=== PATIENT | female | born 1960 | race Caucasian/White ===

== ENCOUNTER 2023-01-20 19:02 | Inpatient (IN) | payer SELFPAY ==
[2023-01-20] VITALS (10 sets, daily range): BP systolic 114–150; BP diastolic 77–93; PULSE 71–97; RESP 16–20; TEMP 36.7; O2SAT 97–100; BMI 20.4
--- NOTE | 2023-01-20 19:32 | CRLHL7_ITS ---
For Patients: As a result of the Cures Act, medical imaging exams and procedure reports are released immediately into your electronic medical record. You may view this report before your referring provider. If you have questions, please contact your health care provider. HISTORY: Constipation. TECHNIQUE: Flat and upright abdominal radiographs. COMPARISON: No prior. FINDINGS: No free intraperitoneal air. No bowel obstruction. Patient does not appear excessively constipated. Pelvic calcifications likely represent phleboliths. There are degenerative changes of the spine. IMPRESSION: 1. No obstruction or free air. 2. Patient does not appear constipated. Dictated by Duane Benavides MD @ 01/20/2023 8:10:37 PM Dictated by: Duane Benavides MD @ 01/20/2023 20:10:41 (Electronically Signed)
--- NOTE | 2023-01-20 19:40 | ED.GENADULT ---
HPI - General Adult General Chief complaint: Constipation <Chaya Colon MD - Last Filed: 01/20/23 21:26> Stated complaint: No stool passed in a few days, coming out the top <Chaya Colon MD - Last Filed: 01/20/23 21:26> Time Seen by Provider: 01/20/23 19:24 <Chaya Colon MD - Last Filed: 01/20/23 21:26> Source: patient <Chaya Colon MD - Last Filed: 01/20/23 21:26> Mode of arrival: ambulatory <Chaya Colon MD - Last Filed: 01/20/23 21:26> Limitations: no limitations <Chaya Colon MD - Last Filed: 01/20/23 21:26> History of Present Illness HPI narrative: 62-year-old female coming in today concerned about constipation. Patient really can not tell me how long she has not had a bowel movement for. She states that yesterday and today she became very concerned about feeling ?full? and so she began the process of giving herself recurrent emesis throughout the day. She can not tell me what she has been using as enemas but she tells me that they are ?natural and herbal remedies?. She has not tried any [id number] medications such as stool softeners or bulking agents. She states that her abdomen feels uncomfortable and that anytime she eats anything in the last 24 hour she vomits it right back up again. She states that when she does her at home enemas she is able to get some stool out but it is not an amount that she feels is adequate. She denies any fevers or chills. No recent traveling. No trouble with urination. No changes in her appetite. She does state that she has been feeling lightheaded for the last 2 days. She thought today she might even pass out for a moment but did not. She feels unsteady on her feet. She states that generally she is very strong, does yoga regularly and has not been doing any of her exercises in the last month she has been so focused on getting her things packed up. Patient tells me that she has been working very hard over the last 2 months trying to get her belongings packed so that she can moved and this causes her ?rectum to become very tight?. <Chaya Colon MD - Last Filed: 01/20/23 21:26> Related Data Home medications: Home Medications Medication Instructions Recorded Confirmed No Known Home Medications 01/20/23 01/20/23 <Chaya Colon MD - Last Filed: 01/20/23 21:26> Allergies/adverse reactions: Allergies Allergy/AdvReac Type Severity Reaction Status Date / Time No Known Drug Allergies Allergy Verified 01/20/23 19:17 <Chaya Colon MD - Last Filed: 01/20/23 21:26> Review of Systems Status of ROS: Reports: 10 or more systems reviewed and unremarkable except as noted in History and below <Cahya Colon MD - Last Filed: 01/20/23 21:26> [facility] Social History: Social History Smoking Status: Never smoker Do you use any of these nicotine containing products: None How often do you have a drink containing alcohol: never How often do you have six or more drinks on one occasion: Never AUDIT-C Alcohol total score: 0 Non-prescribed substance use: denies use service: No <Chaya Colon MD - Last Filed: 01/20/23 21:26> Exam Narrative: Exam Narrative: Well-nourished well-developed patient in no acute distress. Alert and oriented. Answers questions appropriately. Mood and affect are appropriate. Patient often times evades answering questions. HEENT: Normocephalic atraumatic. Pupils are equally round reactive to light. Extraocular muscles are intact. Conjunctivae are moist without any icterus noted. Moist mucous membranes. Posterior pharynx is normal. Neck is soft without any lymphadenopathy or thyromegaly. No masses are appreciated. Cardiovascular: Heart is regular rate and rhythm S1 and S2 are present without any murmurs. Lungs: Clear to auscultation bilaterally no wheezes rhonchi or rales are appreciated. Patient takes deep breaths without any discomfort. Abdomen: Soft and nontender nondistended with hypoactive bowel sounds. No guarding or rebound. No masses or organomegaly appreciated. Extremities: Bilateral lower extremities are without edema. Normal DP and PT pulses. Skin: Well perfused without any obvious rashes. Rectal: Rectum appears irritated. There are no thrombosed hemorrhoids, there is normal rectal tone. There is no fissures or other abnormalities noted. Strength is 5/5 of the upper and lower extremities. Reflexes are 2+ and symmetric at the knees. Cranial nerves 3-12 are normal. There is no nystagmus either horizontally or vertically. Patient is unsteady on her feet. Steps are slow and require significant concentration. <Chaya Colon MD - Last Filed: 01/20/23 21:26> Const: Vital Signs, click to edit/add: Vital Signs - 24 hr 01/20/23 19:15 01/20/23 21:41 01/20/23 22:55 Temperature 98.1 F Pulse Rate 79 Pulse Rate [Left P ulse Oximeter] 97 79 Respiratory Rate 16 20 Blood Pressure Blood Pressure [Ri ght Upper Arm] 150/93 H 142/85 H Pulse Oximetry 100 100 97 Oxygen Delivery Me thod Room Air Room Air 01/20/23 22:57 01/20/23 23:00 01/20/23 23:03 Temperature Pulse Rate 73 71 79 Pulse Rate [Left P ulse Oximeter] Respiratory Rate Blood Pressure 124/81 114/77 Blood Pressure [Ri ght Upper Arm] Pulse Oximetry 100 99 99 Oxygen Delivery Me thod 01/20/23 23:04 01/20/23 23:15 01/20/23 23:30 Temperature Pulse Rate 79 74 73 Pulse Rate [Left P ulse Oximeter] Respiratory Rate Blood Pressure Blood Pressure [Ri ght Upper Arm] Pulse Oximetry 98 98 99 Oxygen Delivery Me thod 01/20/23 23:45 01/21/23 00:00 01/21/23 00:02 Temperature Pulse Rate 73 75 77 Pulse Rate [Left P ulse Oximeter] Respiratory Rate 16 Blood Pressure 120/81 Blood Pressure [Ri ght Upper Arm] Pulse Oximetry 100 98 100 Oxygen Delivery Me thod 01/21/23 00:15 01/21/23 03:45 01/21/23 03:46 Temperature Pulse Rate 75 86 74 Pulse Rate [Left P ulse Oximeter] Respiratory Rate Blood Pressure 112/69 Blood Pressure [Ri ght Upper Arm] Pulse Oximetry 99 97 98 Oxygen Delivery Me thod 01/21/23 04:02 01/21/23 05:02 01/21/23 06:02 Temperature Pulse Rate 70 73 72 Pulse Rate [Left P ulse Oximeter] Respiratory Rate 16 18 16 Blood Pressure 108/67 117/79 110/77 Blood Pressure [Ri ght Upper Arm] Pulse Oximetry 98 98 96 Oxygen Delivery Me thod 01/21/23 07:47 01/21/23 07:48 Temperature 96.9 F L Pulse Rate 80 76 Pulse Rate [Left P ulse Oximeter] Respiratory Rate 16 Blood Pressure 126/83 Blood Pressure [Ri ght Upper Arm] Pulse Oximetry 100 100 Oxygen Delivery Me thod <Chyaa Colno MD - Last Filed: 01/20/23 21:26> Vital Signs, click to edit/add: Vital Signs - 24 hr 01/20/23 19:15 01/20/23 21:41 01/20/23 22:55 Temperature 98.1 F Pulse Rate 79 Pulse Rate [Left P ulse Oximeter] 97 79 Respiratory Rate 16 20 Blood Pressure Blood Pressure [Ri ght Upper Arm] 150/93 H 142/85 H Pulse Oximetry 100 100 97 Oxygen Delivery Me thod Room Air Room Air 01/20/23 22:57 01/20/23 23:00 01/20/23 23:03 Temperature Pulse Rate 73 71 79 Pulse Rate [Left P ulse Oximeter] Respiratory Rate Blood Pressure 124/81 114/77 Blood Pressure [Ri ght Upper Arm] Pulse Oximetry 100 99 99 Oxygen Delivery Me thod 01/20/23 23:04 01/20/23 23:15 01/20/23 23:30 Temperature Pulse Rate 79 74 73 Pulse Rate [Left P ulse Oximeter] Respiratory Rate Blood Pressure Blood Pressure [Ri ght Upper Arm] Pulse Oximetry 98 98 99 Oxygen Delivery Me thod 01/20/23 23:45 01/21/23 00:00 01/21/23 00:02 Temperature Pulse Rate 73 75 77 Pulse Rate [Left P ulse Oximeter] Respiratory Rate 16 Blood Pressure 120/81 Blood Pressure [Ri ght Upper Arm] Pulse Oximetry 100 98 100 Oxygen Delivery Me thod 01/21/23 00:15 01/21/23 03:45 01/21/23 03:46 Temperature Pulse Rate 75 86 74 Pulse Rate [Left P ulse Oximeter] Respiratory Rate Blood Pressure 112/69 Blood Pressure [Ri ght Upper Arm] Pulse Oximetry 99 97 98 Oxygen Delivery Me thod 01/21/23 04:02 01/21/23 05:02 01/21/23 06:02 Temperature Pulse Rate 70 73 72 Pulse Rate [Left P ulse Oximeter] Respiratory Rate 16 18 16 Blood Pressure 108/67 117/79 110/77 Blood Pressure [Ri ght Upper Arm] Pulse Oximetry 98 98 96 Oxygen Delivery Me thod 01/21/23 07:47 01/21/23 07:48 Temperature 96.9 F L Pulse Rate 80 76 Pulse Rate [Left P ulse Oximeter] Respiratory Rate 16 Blood Pressure 126/83 Blood Pressure [Ri ght Upper Arm] Pulse Oximetry 100 100 Oxygen Delivery Me thod <Madan Youssef MD - Last Filed: 01/21/23 01:08> Vital Signs, click to edit/add: Vital Signs - 24 hr 01/20/23 19:15 01/20/23 21:41 01/20/23 22:55 Temperature 98.1 F Pulse Rate 79 Pulse Rate [Left P ulse Oximeter] 97 79 Respiratory Rate 16 20 Blood Pressure Blood Pressure [Ri ght Upper Arm] 150/93 H 142/85 H Pulse Oximetry 100 100 97 Oxygen Delivery Me thod Room Air Room Air 01/20/23 22:57 01/20/23 23:00 01/20/23 23:03 Temperature Pulse Rate 73 71 79 Pulse Rate [Left P ulse Oximeter] Respiratory Rate Blood Pressure 124/81 114/77 Blood Pressure [Ri ght Upper Arm] Pulse Oximetry 100 99 99 Oxygen Delivery Me thod 01/20/23 23:04 01/20/23 23:15 01/20/23 23:30 Temperature Pulse Rate 79 74 73 Pulse Rate [Left P ulse Oximeter] Respiratory Rate Blood Pressure Blood Pressure [Ri ght Upper Arm] Pulse Oximetry 98 98 99 Oxygen Delivery Me thod 01/20/23 23:45 01/21/23 00:00 01/21/23 00:02 Temperature Pulse Rate 73 75 77 Pulse Rate [Left P ulse Oximeter] Respiratory Rate 16 Blood Pressure 120/81 Blood Pressure [Ri ght Upper Arm] Pulse Oximetry 100 98 100 Oxygen Delivery Me thod 01/21/23 00:15 01/21/23 03:45 01/21/23 03:46 Temperature Pulse Rate 75 86 74 Pulse Rate [Left P ulse Oximeter] Respiratory Rate Blood Pressure 112/69 Blood Pressure [Ri ght Upper Arm] Pulse Oximetry 99 97 98 Oxygen Delivery Me thod 01/21/23 04:02 01/21/23 05:02 01/21/23 06:02 Temperature Pulse Rate 70 73 72 Pulse Rate [Left P ulse Oximeter] Respiratory Rate 16 18 16 Blood Pressure 108/67 117/79 110/77 Blood Pressure [Ri ght Upper Arm] Pulse Oximetry 98 98 96 Oxygen Delivery Me thod 01/21/23 07:47 01/21/23 07:48 Temperature 96.9 F L Pulse Rate 80 76 Pulse Rate [Left P ulse Oximeter] Respiratory Rate 16 Blood Pressure 126/83 Blood Pressure [Ri ght Upper Arm] Pulse Oximetry 100 100 Oxygen Delivery Me thod <Sharath Gomez MD - Last Filed: 01/21/23 08:11> Course Course ED Course: CBC unremarkable. LFTs slightly elevated. Sodium critically low at 113. Discussed her lab results with the patient and patient tells me that she drinks about a sherice jar of water every hour and is constantly feeling very thirsty. She also tells me that she takes herbal supplements regularly but she cannot tell me what they are, what form they come in, or how often she takes them. <Chaya Colon MD - Last Filed: 01/20/23 21:26> Reevaluation(s) Time of Reevaluation #1: 00:36 <Madan Youssef MD - Last Filed: 01/21/23 01:08> Reevaluation #1: I when introduced myself to the patient, she says she is feeling better, she has received a total of 650 mL of normal saline. Recheck of her sodium shows is up to 119. This makes me think that the 1st 1 was done in error. We will decrease her to 125 mL an hour, and I would suggest rechecking her in 3 hours. She will be signed over to the oncoming ER physician,. I also ordered a chest x-ray, to look for other possible causes of this. She is on a lot of herbal medications, but she is not on any other medications that could cause this. She says she it does drink water although is unable to really quantify for me exactly how much she drinks. She also drinks occasional alcohol and once every 5 days. I think doing her ultrasound in the morning would also be reasonable. For the elevated LFTs <Madan Youssef MD - Last Filed: 01/21/23 01:08> Time of Reevaluation #2: 03:17 <Sharath Gomez MD - Last Filed: 01/21/23 08:11> Reevaluation #2: Assumed care of patient at 12:[address] Yepez, briefly patient presented with nausea, vomiting, and abdominal pain, found to be hyponatremic with initial sodium 113 at 7:55 p.m.. Normal saline was initiated. Repeat sodium at 1155 p.m. was 119, sodium infusion was decreased. Repeat troponin done at 2:35 a.m. now is 122. Due to concern of rapid correction of sodium in absence of seizures, normal saline will be stopped and D5 will be initiated, repeat sodium at 5:30 a.m. in further fluid adjustments from there. Care was discussed with hospitalist to declines to admit patient at this time and feels that she still needs to be in the ICU. <Sharath Gomez MD - Last Filed: 01/21/23 08:11> Time of Reevaluation #3: 06:06 <Sharath Gomez MD - Last Filed: 01/21/23 08:11> Reevaluation #3: Repeat sodium 123. Will continue to monitor and plan for admission. <Sharath Gomez MD - Last Filed: 01/21/23 08:11> Additional Reevaluation(s): 7:30 AM care discussed with Dr. Savage in the emergency department. Agrees with plan for admission. If repeat sodium is greater than 120, can go to the floor. If less than 120, patient can go to CCU. Will continue D5W for now. 11:00 a.m. repeat sodium stable at 123, patient will be admitted to the floor. <Sharath Gomez MD - Last Filed: 01/21/23 08:11> Vital Signs Vital signs: Initial Vital Signs Temperature 98.1 F 01/20/23 19:15 Temperature Source Temporal Artery Scan 01/20/23 19:15 Pulse Rate 97 01/20/23 19:15 Respiratory Rate 16 01/20/23 19:15 Blood Pressure 150/93 H 01/20/23 19:15 Blood Pressure Mean 112 H 01/20/23 19:15 Blood Pressure Position Sitting 01/20/23 19:15 Pulse Oximetry 100 01/20/23 19:15 Oxygen Delivery Method Room Air 01/20/23 19:15 Vital Signs Temperature 98.1 F 01/20/23 19:15 Pulse Rate 97 01/20/23 19:15 Respiratory Rate 16 01/20/23 19:15 Blood Pressure 150/93 H 01/20/23 19:15 Pulse Oximetry 100 01/20/23 19:15 Oxygen Delivery Method Room Air 01/20/23 19:15 Temperature 96.9 F L 01/21/23 07:47 Pulse Rate 76 01/21/23 07:48 Respiratory Rate 16 01/21/23 07:47 Blood Pressure 126/83 01/21/23 07:47 Pulse Oximetry 100 01/21/23 07:48 Oxygen Delivery Method Room Air 01/20/23 21:41 <Chaya Colon MD - Last Filed: 01/20/23 21:26> Initial Vital Signs Temperature 98.1 F 01/20/23 19:15 Temperature Source Temporal Artery Scan 01/20/23 19:15 Pulse Rate 97 01/20/23 19:15 Respiratory Rate 16 01/20/23 19:15 Blood Pressure 150/93 H 01/20/23 19:15 Blood Pressure Mean 112 H 01/20/23 19:15 Blood Pressure Position Sitting 01/20/23 19:15 Pulse Oximetry 100 01/20/23 19:15 Oxygen Delivery Method Room Air 01/20/23 19:15 Vital Signs Temperature 98.1 F 01/20/23 19:15 Pulse Rate 97 01/20/23 19:15 Respiratory Rate 16 01/20/23 19:15 Blood Pressure 150/93 H 01/20/23 19:15 Pulse Oximetry 100 01/20/23 19:15 Oxygen Delivery Method Room Air 01/20/23 19:15 Temperature 96.9 F L 01/21/23 07:47 Pulse Rate 76 01/21/23 07:48 Respiratory Rate 16 01/21/23 07:47 Blood Pressure 126/83 01/21/23 07:47 Pulse Oximetry 100 01/21/23 07:48 Oxygen Delivery Method Room Air 01/20/23 21:41 <Madan Youssef MD - Last Filed: 01/21/23 01:08> Initial Vital Signs Temperature 98.1 F 01/20/23 19:15 Temperature Source Temporal Artery Scan 01/20/23 19:15 Pulse Rate 97 01/20/23 19:15 Respiratory Rate 16 01/20/23 19:15 Blood Pressure 150/93 H 01/20/23 19:15 Blood Pressure Mean 112 H 01/20/23 19:15 Blood Pressure Position Sitting 01/20/23 19:15 Pulse Oximetry 100 01/20/23 19:15 Oxygen Delivery Method Room Air 01/20/23 19:15 Vital Signs Temperature 98.1 F 01/20/23 19:15 Pulse Rate 97 01/20/23 19:15 Respiratory Rate 16 01/20/23 19:15 Blood Pressure 150/93 H 01/20/23 19:15 Pulse Oximetry 100 01/20/23 19:15 Oxygen Delivery Method Room Air 01/20/23 19:15 Temperature 96.9 F L 01/21/23 07:47 Pulse Rate 76 01/21/23 07:48 Respiratory Rate 16 01/21/23 07:47 Blood Pressure 126/83 01/21/23 07:47 Pulse Oximetry 100 01/21/23 07:48 Oxygen Delivery Method Room Air 01/20/23 21:41 <Sharath Gomez MD - Last Filed: 01/21/23 08:11> Medical Decision Making MDM Narrative Medical decision making narrative: 62-year-old female with hyponatremia. Patient does require admission however there are no available hospital beds here or elsewhere. Therefore at this time patient will be treated with normal saline in the ER until a bed opens up. We will also proceed with right upper quadrant ultrasound given her elevated LFTs. <Chaya Colon MD - Last Filed: 01/20/23 21:26> Lab Data Labs: Lab Results 01/20/23 01/20/23 01/20/23 Range/Units 16:55 19:55 22:40 WBC 8.54 (4.50-11.00) K/uL RBC 4.69 (4.00-5.20) m/uL Hgb 13.8 (12.0-16.0) gm/dL Hct 38.5 (33.0-51.0) % MCV 82 (80-100) fL MCH 29 (26-34) pg MCHC 36 (32-36) gm/dL RDW Coeff of Allen 11.8 (11.5-15.5) % Plt Count 243 (140-440) K/uL Neut % (Auto) 78.3 H (42.0-72.0) % Lymph % (Auto) 14.9 L (20-44) % [place] % (Auto) 6.0 (0.0-11.0) % Eos % (Auto) 0.5 (0.0-7.0) % Baso % (Auto) 0.2 (0.0-3.0) % Neut # (Auto) 6.70 (1.7-7.0) K/uL Lymph # (Auto) 1.30 (0.90-2.90) K/uL [place] # (Auto) 0.50 (0.00-0.90) K/UL Eos # (Auto) 0.04 (0.00-0.50) K/uL Baso # (Auto) 0.02 (0.00-0.30) K/uL Abs Immat Gran (auto) 0.01 (0.00-0.30) K/uL Imm/Tot Granulo (auto) 0.1 % Sodium 113 L* (135-149) mmol/L Potassium 3.5 L (3.6-5.1) mmol/L Chloride 81 L (96-114) mmol/L Carbon Dioxide 25 (20-32) mmol/L Anion Gap 7 (7-15) mEq/L BUN 8 (7-30) mg/dL Creatinine 0.5 (0.5-1.5) mg/dL Estimated Creat Clear 52.91 Estimated GFR 105 ml/min Glucose 102 (60-115) mg/dL Calcium 9.4 (8.4-10.6) mg/dL Total Bilirubin 1.5 (0.1-1.5) mg/dL Direct Bilirubin 0.0 (0.0-0.5) mg/dL AST 180 H (12-35) U/L ALT 102 H (4-35) U/L Alkaline Phosphatase 55 (40-150) U/L C-Reactive Protein < 0.5 L (0.5-1.0) mg/dL Total Protein 7.2 (6.0-8.3) g/dL Albumin 4.4 (3.3-5.0) g/dL Lipase 60 (23-300) U/L Urine Color Yellow (Yellow) Urine Appearance Clear (Clear) Urine pH 7.0 (5.0-8.5) Ur Specific [place] 1.010 (1.000-1.030) Urine Protein Negative (Negative) Urine Glucose (UA) Negative (Negative) Urine Ketones 2+ A (Negative) Urine Blood Trace-intact A (Negative) Urine Nitrite Negative (Negative) Urine Bilirubin Negative (Negative) Urine Urobilinogen 0.2 (0.2-1.0) Ur Leukocyte Esterase Negative (Negative) Urine RBC 0-2 (0-2) Urine WBC 0-2 (0-5) Ur Squamous Epith Cells Few (None-Few) Urine Bacteria None (None) Salicylates < 1.0 L (1.0-10) mg/dL Acetaminophen < 10.0 L (10.0-30.0) ug/mL Ethyl Alcohol < 0.01 L (0.01-0.03) % Lab Acknowledgement 01/20/23 01/21/23 01/21/23 Range/Units 23:45 02:35 02:46 WBC (4.50-11.00) K/uL RBC (4.00-5.20) m/uL Hgb (12.0-16.0) gm/dL Hct (33.0-51.0) % MCV (80-100) fL MCH (26-34) pg MCHC (32-36) gm/dL RDW Coeff of Allen (11.5-15.5) % Plt Count (140-440) K/uL Neut % (Auto) (42.0-72.0) % Lymph % (Auto) (20-44) % Cand[place] % (Auto) (0.0-11.0) % Eos % (Auto) (0.0-7.0) % Baso % (Auto) (0.0-3.0) % Neut # (Auto) (1.7-7.0) K/uL Lymph # (Auto) (0.90-2.90) K/uL [place] # (Auto) (0.00-0.90) K/UL Eos # (Auto) (0.00-0.50) K/uL Baso # (Auto) (0.00-0.30) K/uL Abs Immat Gran (auto) (0.00-0.30) K/uL Imm/Tot Granulo (auto) % Sodium 119 L* 122 L* (135-149) mmol/L Potassium 3.5 L 3.4 L (3.6-5.1) mmol/L Chloride 89 L 93 L (96-114) mmol/L Carbon Dioxide 22 23 (20-32) mmol/L Anion Gap 8 6 L (7-15) mEq/L BUN 7 7 (7-30) mg/dL Creatinine 0.4 L 0.4 L (0.5-1.5) mg/dL Estimated Creat Clear 52.91 52.91 Estimated GFR 110 110 ml/min Glucose 89 88 (60-115) mg/dL Calcium 9.1 8.8 (8.4-10.6) mg/dL Total Bilirubin (0.1-1.5) mg/dL Direct Bilirubin (0.0-0.5) mg/dL AST (12-35) U/L ALT (4-35) U/L Alkaline Phosphatase (40-150) U/L C-Reactive Protein (0.5-1.0) mg/dL Total Protein (6.0-8.3) g/dL Albumin (3.3-5.0) g/dL Lipase (23-300) U/L Urine Color (Yellow) Urine Appearance (Clear) Urine pH (5.0-8.5) Ur Specific [place] (1.000-1.030) Urine Protein (Negative) Urine Glucose (UA) (Negative) Urine Ketones (Negative) Urine Blood (Negative) Urine Nitrite (Negative) Urine Bilirubin (Negative) Urine Urobilinogen (0.2-1.0) Ur Leukocyte Esterase (Negative) Urine RBC (0-2) Urine WBC (0-5) Ur Squamous Epith Cells (None-Few) Urine Bacteria (None) Salicylates (1.0-10) mg/dL Acetaminophen (10.0-30.0) ug/mL Ethyl Alcohol (0.01-0.03) % Lab Acknowledgement Test Added 01/21/23 01/21/23 Range/Units 05:35 07:33 WBC (4.50-11.00) K/uL RBC (4.00-5.20) m/uL Hgb (12.0-16.0) gm/dL Hct (33.0-51.0) % MCV (80-100) fL MCH (26-34) pg MCHC (32-36) gm/dL RDW Coeff of Allen (11.5-15.5) % Plt Count (140-440) K/uL Neut % (Auto) (42.0-72.0) % Lymph % (Auto) (20-44) % Cand[place] % (Auto) (0.0-11.0) % Eos % (Auto) (0.0-7.0) % Baso % (Auto) (0.0-3.0) % Neut # (Auto) (1.7-7.0) K/uL Lymph # (Auto) (0.90-2.90) K/uL Cand[place] # (Auto) (0.00-0.90) K/UL Eos # (Auto) (0.00-0.50) K/uL Baso # (Auto) (0.00-0.30) K/uL Abs Immat Gran (auto) (0.00-0.30) K/uL Imm/Tot Granulo (auto) % Sodium 123 L* 123 L* (135-149) mmol/L Potassium 3.4 L 3.6 (3.6-5.1) mmol/L Chloride 93 L 93 L (96-114) mmol/L Carbon Dioxide 24 23 (20-32) mmol/L Anion Gap 6 L 7 (7-15) mEq/L BUN 6 L 7 (7-30) mg/dL Creatinine 0.4 L 0.4 L (0.5-1.5) mg/dL Estimated Creat Clear 52.91 52.91 Estimated GFR 110 110 ml/min Glucose 96 85 (60-115) mg/dL Calcium 8.9 9.0 (8.4-10.6) mg/dL Total Bilirubin (0.1-1.5) mg/dL Direct Bilirubin (0.0-0.5) mg/dL AST (12-35) U/L ALT (4-35) U/L Alkaline Phosphatase (40-150) U/L C-Reactive Protein (0.5-1.0) mg/dL Total Protein (6.0-8.3) g/dL Albumin (3.3-5.0) g/dL Lipase (23-300) U/L Urine Color (Yellow) Urine Appearance (Clear) Urine pH (5.0-8.5) Ur Specific [place] (1.000-1.030) Urine Protein (Negative) Urine Glucose (UA) (Negative) Urine Ketones (Negative) Urine Blood (Negative) Urine Nitrite (Negative) Urine Bilirubin (Negative) Urine Urobilinogen (0.2-1.0) Ur Leukocyte Esterase (Negative) Urine RBC (0-2) Urine WBC (0-5) Ur Squamous Epith Cells (None-Few) Urine Bacteria (None) Salicylates (1.0-10) mg/dL Acetaminophen (10.0-30.0) ug/mL Ethyl Alcohol (0.01-0.03) % Lab Acknowledgement <Chaya Colon MD - Last Filed: 01/20/23 21:26> Lab Results 01/20/23 01/20/23 01/20/23 Range/Units 16:55 19:55 22:40 WBC 8.54 (4.50-11.00) K/uL RBC 4.69 (4.00-5.20) m/uL Hgb 13.8 (12.0-16.0) gm/dL Hct 38.5 (33.0-51.0) % MCV 82 (80-100) fL MCH 29 (26-34) pg MCHC 36 (32-36) gm/dL RDW Coeff of Allen 11.8 (11.5-15.5) % Plt Count 243 (140-440) K/uL Neut % (Auto) 78.3 H (42.0-72.0) % Lymph % (Auto) 14.9 L (20-44) % [place] % (Auto) 6.0 (0.0-11.0) % Eos % (Auto) 0.5 (0.0-7.0) % Baso % (Auto) 0.2 (0.0-3.0) % Neut # (Auto) 6.70 (1.7-7.0) K/uL Lymph # (Auto) 1.30 (0.90-2.90) K/uL [place] # (Auto) 0.50 (0.00-0.90) K/UL Eos # (Auto) 0.04 (0.00-0.50) K/uL Baso # (Auto) 0.02 (0.00-0.30) K/uL Abs Immat Gran (auto) 0.01 (0.00-0.30) K/uL Imm/Tot Granulo (auto) 0.1 % Sodium 113 L* (135-149) mmol/L Potassium 3.5 L (3.6-5.1) mmol/L Chloride 81 L (96-114) mmol/L Carbon Dioxide 25 (20-32) mmol/L Anion Gap 7 (7-15) mEq/L BUN 8 (7-30) mg/dL Creatinine 0.5 (0.5-1.5) mg/dL Estimated Creat Clear 52.91 Estimated GFR 105 ml/min Glucose 102 (60-115) mg/dL Calcium 9.4 (8.4-10.6) mg/dL Total Bilirubin 1.5 (0.1-1.5) mg/dL Direct Bilirubin 0.0 (0.0-0.5) mg/dL AST 180 H (12-35) U/L ALT 102 H (4-35) U/L Alkaline Phosphatase 55 (40-150) U/L C-Reactive Protein < 0.5 L (0.5-1.0) mg/dL Total Protein 7.2 (6.0-8.3) g/dL Albumin 4.4 (3.3-5.0) g/dL Lipase 60 (23-300) U/L Urine Color Yellow (Yellow) Urine Appearance Clear (Clear) Urine pH 7.0 (5.0-8.5) Ur Specific [place] 1.010 (1.000-1.030) Urine Protein Negative (Negative) Urine Glucose (UA) Negative (Negative) Urine Ketones 2+ A (Negative) Urine Blood Trace-intact A (Negative) Urine Nitrite Negative (Negative) Urine Bilirubin Negative (Negative) Urine Urobilinogen 0.2 (0.2-1.0) Ur Leukocyte Esterase Negative (Negative) Urine RBC 0-2 (0-2) Urine WBC 0-2 (0-5) Ur Squamous Epith Cells Few (None-Few) Urine Bacteria None (None) Salicylates < 1.0 L (1.0-10) mg/dL Acetaminophen < 10.0 L (10.0-30.0) ug/mL Ethyl Alcohol < 0.01 L (0.01-0.03) % Lab Acknowledgement 01/20/23 01/21/23 01/21/23 Range/Units 23:45 02:35 02:46 WBC (4.50-11.00) K/uL RBC (4.00-5.20) m/uL Hgb (12.0-16.0) gm/dL Hct (33.0-51.0) % MCV (80-100) fL MCH (26-34) pg MCHC (32-36) gm/dL RDW Coeff of Allen (11.5-15.5) % Plt Count (140-440) K/uL Neut % (Auto) (42.0-72.0) % Lymph % (Auto) (20-44) % Candler % (Auto) (0.0-11.0) % Eos % (Auto) (0.0-7.0) % Baso % (Auto) (0.0-3.0) % Neut # (Auto) (1.7-7.0) K/uL Lymph # (Auto) (0.90-2.90) K/uL Candler # (Auto) (0.00-0.90) K/UL Eos # (Auto) (0.00-0.50) K/uL Baso # (Auto) (0.00-0.30) K/uL Abs Immat Gran (auto) (0.00-0.30) K/uL Imm/Tot Granulo (auto) % Sodium 119 L* 122 L* (135-149) mmol/L Potassium 3.5 L 3.4 L (3.6-5.1) mmol/L Chloride 89 L 93 L (96-114) mmol/L Carbon Dioxide 22 23 (20-32) mmol/L Anion Gap 8 6 L (7-15) mEq/L BUN 7 7 (7-30) mg/dL Creatinine 0.4 L 0.4 L (0.5-1.5) mg/dL Estimated Creat Clear 52.91 52.91 Estimated GFR 110 110 ml/min Glucose 89 88 (60-115) mg/dL Calcium 9.1 8.8 (8.4-10.6) mg/dL Total Bilirubin (0.1-1.5) mg/dL Direct Bilirubin (0.0-0.5) mg/dL AST (12-35) U/L ALT (4-35) U/L Alkaline Phosphatase (40-150) U/L C-Reactive Protein (0.5-1.0) mg/dL Total Protein (6.0-8.3) g/dL Albumin (3.3-5.0) g/dL Lipase (23-300) U/L Urine Color (Yellow) Urine Appearance (Clear) Urine pH (5.0-8.5) Ur Specific [place] (1.000-1.030) Urine Protein (Negative) Urine Glucose (UA) (Negative) Urine Ketones (Negative) Urine Blood (Negative) Urine Nitrite (Negative) Urine Bilirubin (Negative) Urine Urobilinogen (0.2-1.0) Ur Leukocyte Esterase (Negative) Urine RBC (0-2) Urine WBC (0-5) Ur Squamous Epith Cells (None-Few) Urine Bacteria (None) Salicylates (1.0-10) mg/dL Acetaminophen (10.0-30.0) ug/mL Ethyl Alcohol (0.01-0.03) % Lab Acknowledgement Test Added 01/21/23 01/21/23 Range/Units 05:35 07:33 WBC (4.50-11.00) K/uL RBC (4.00-5.20) m/uL Hgb (12.0-16.0) gm/dL Hct (33.0-51.0) % MCV (80-100) fL MCH (26-34) pg MCHC (32-36) gm/dL RDW Coeff of Allen (11.5-15.5) % Plt Count (140-440) K/uL Neut % (Auto) (42.0-72.0) % Lymph % (Auto) (20-44) % [place] % (Auto) (0.0-11.0) % Eos % (Auto) (0.0-7.0) % Baso % (Auto) (0.0-3.0) % Neut # (Auto) (1.7-7.0) K/uL Lymph # (Auto) (0.90-2.90) K/uL [place] # (Auto) (0.00-0.90) K/UL Eos # (Auto) (0.00-0.50) K/uL Baso # (Auto) (0.00-0.30) K/uL Abs Immat Gran (auto) (0.00-0.30) K/uL Imm/Tot Granulo (auto) % Sodium 123 L* 123 L* (135-149) mmol/L Potassium 3.4 L 3.6 (3.6-5.1) mmol/L Chloride 93 L 93 L (96-114) mmol/L Carbon Dioxide 24 23 (20-32) mmol/L Anion Gap 6 L 7 (7-15) mEq/L BUN 6 L 7 (7-30) mg/dL Creatinine 0.4 L 0.4 L (0.5-1.5) mg/dL Estimated Creat Clear 52.91 52.91 Estimated GFR 110 110 ml/min Glucose 96 85 (60-115) mg/dL Calcium 8.9 9.0 (8.4-10.6) mg/dL Total Bilirubin (0.1-1.5) mg/dL Direct Bilirubin (0.0-0.5) mg/dL AST (12-35) U/L ALT (4-35) U/L Alkaline Phosphatase (40-150) U/L C-Reactive Protein (0.5-1.0) mg/dL Total Protein (6.0-8.3) g/dL Albumin (3.3-5.0) g/dL Lipase (23-300) U/L Urine Color (Yellow) Urine Appearance (Clear) Urine pH (5.0-8.5) Ur Specific [place] (1.000-1.030) Urine Protein (Negative) Urine Glucose (UA) (Negative) Urine Ketones (Negative) Urine Blood (Negative) Urine Nitrite (Negative) Urine Bilirubin (Negative) Urine Urobilinogen (0.2-1.0) Ur Leukocyte Esterase (Negative) Urine RBC (0-2) Urine WBC (0-5) Ur Squamous Epith Cells (None-Few) Urine Bacteria (None) Salicylates (1.0-10) mg/dL Acetaminophen (10.0-30.0) ug/mL Ethyl Alcohol (0.01-0.03) % Lab Acknowledgement <Madan Youssef MD - Last Filed: 01/21/23 01:08> Lab Results 01/20/23 01/20/23 01/20/23 Range/Units 16:55 19:55 22:40 WBC 8.54 (4.50-11.00) K/uL RBC 4.69 (4.00-5.20) m/uL Hgb 13.8 (12.0-16.0) gm/dL Hct 38.5 (33.0-51.0) % MCV 82 (80-100) fL MCH 29 (26-34) pg MCHC 36 (32-36) gm/dL RDW Coeff of Allen 11.8 (11.5-15.5) % Plt Count 243 (140-440) K/uL Neut % (Auto) 78.3 H (42.0-72.0) % Lymph % (Auto) 14.9 L (20-44) % [place] % (Auto) 6.0 (0.0-11.0) % Eos % (Auto) 0.5 (0.0-7.0) % Baso % (Auto) 0.2 (0.0-3.0) % Neut # (Auto) 6.70 (1.7-7.0) K/uL Lymph # (Auto) 1.30 (0.90-2.90) K/uL [place] # (Auto) 0.50 (0.00-0.90) K/UL Eos # (Auto) 0.04 (0.00-0.50) K/uL Baso # (Auto) 0.02 (0.00-0.30) K/uL Abs Immat Gran (auto) 0.01 (0.00-0.30) K/uL Imm/Tot Granulo (auto) 0.1 % Sodium 113 L* (135-149) mmol/L Potassium 3.5 L (3.6-5.1) mmol/L Chloride 81 L (96-114) mmol/L Carbon Dioxide 25 (20-32) mmol/L Anion Gap 7 (7-15) mEq/L BUN 8 (7-30) mg/dL Creatinine 0.5 (0.5-1.5) mg/dL Estimated Creat Clear 52.91 Estimated GFR 105 ml/min Glucose 102 (60-115) mg/dL Calcium 9.4 (8.4-10.6) mg/dL Total Bilirubin 1.5 (0.1-1.5) mg/dL Direct Bilirubin 0.0 (0.0-0.5) mg/dL AST 180 H (12-35) U/L ALT 102 H (4-35) U/L Alkaline Phosphatase 55 (40-150) U/L C-Reactive Protein < 0.5 L (0.5-1.0) mg/dL Total Protein 7.2 (6.0-8.3) g/dL Albumin 4.4 (3.3-5.0) g/dL Lipase 60 (23-300) U/L Urine Color Yellow (Yellow) Urine Appearance Clear (Clear) Urine pH 7.0 (5.0-8.5) Ur Specific [place] 1.010 (1.000-1.030) Urine Protein Negative (Negative) Urine Glucose (UA) Negative (Negative) Urine Ketones 2+ A (Negative) Urine Blood Trace-intact A (Negative) Urine Nitrite Negative (Negative) Urine Bilirubin Negative (Negative) Urine Urobilinogen 0.2 (0.2-1.0) Ur Leukocyte Esterase Negative (Negative) Urine RBC 0-2 (0-2) Urine WBC 0-2 (0-5) Ur Squamous Epith Cells Few (None-Few) Urine Bacteria None (None) Salicylates < 1.0 L (1.0-10) mg/dL Acetaminophen < 10.0 L (10.0-30.0) ug/mL Ethyl Alcohol < 0.01 L (0.01-0.03) % Lab Acknowledgement 01/20/23 01/21/23 01/21/23 Range/Units 23:45 02:35 02:46 WBC (4.50-11.00) K/uL RBC (4.00-5.20) m/uL Hgb (12.0-16.0) gm/dL Hct (33.0-51.0) % MCV (80-100) fL MCH (26-34) pg MCHC (32-36) gm/dL RDW Coeff of Allen (11.5-15.5) % Plt Count (140-440) K/uL Neut % (Auto) (42.0-72.0) % Lymph % (Auto) (20-44) % [place] % (Auto) (0.0-11.0) % Eos % (Auto) (0.0-7.0) % Baso % (Auto) (0.0-3.0) % Neut # (Auto) (1.7-7.0) K/uL Lymph # (Auto) (0.90-2.90) K/uL [place] # (Auto) (0.00-0.90) K/UL Eos # (Auto) (0.00-0.50) K/uL Baso # (Auto) (0.00-0.30) K/uL Abs Immat Gran (auto) (0.00-0.30) K/uL Imm/Tot Granulo (auto) % Sodium 119 L* 122 L* (135-149) mmol/L Potassium 3.5 L 3.4 L (3.6-5.1) mmol/L Chloride 89 L 93 L (96-114) mmol/L Carbon Dioxide 22 23 (20-32) mmol/L Anion Gap 8 6 L (7-15) mEq/L BUN 7 7 (7-30) mg/dL Creatinine 0.4 L 0.4 L (0.5-1.5) mg/dL Estimated Creat Clear 52.91 52.91 Estimated GFR 110 110 ml/min Glucose 89 88 (60-115) mg/dL Calcium 9.1 8.8 (8.4-10.6) mg/dL Total Bilirubin (0.1-1.5) mg/dL Direct Bilirubin (0.0-0.5) mg/dL AST (12-35) U/L ALT (4-35) U/L Alkaline Phosphatase (40-150) U/L C-Reactive Protein (0.5-1.0) mg/dL Total Protein (6.0-8.3) g/dL Albumin (3.3-5.0) g/dL Lipase (23-300) U/L Urine Color (Yellow) Urine Appearance (Clear) Urine pH (5.0-8.5) Ur Specific [place] (1.000-1.030) Urine Protein (Negative) Urine Glucose (UA) (Negative) Urine Ketones (Negative) Urine Blood (Negative) Urine Nitrite (Negative) Urine Bilirubin (Negative) Urine Urobilinogen (0.2-1.0) Ur Leukocyte Esterase (Negative) Urine RBC (0-2) Urine WBC (0-5) Ur Squamous Epith Cells (None-Few) Urine Bacteria (None) Salicylates (1.0-10) mg/dL Acetaminophen (10.0-30.0) ug/mL Ethyl Alcohol (0.01-0.03) % Lab Acknowledgement Test Added 01/21/23 01/21/23 Range/Units 05:35 07:33 WBC (4.50-11.00) K/uL RBC (4.00-5.20) m/uL Hgb (12.0-16.0) gm/dL Hct (33.0-51.0) % MCV (80-100) fL MCH (26-34) pg MCHC (32-36) gm/dL RDW Coeff of Allen (11.5-15.5) % Plt Count (140-440) K/uL Neut % (Auto) (42.0-72.0) % Lymph % (Auto) (20-44) % [place] % (Auto) (0.0-11.0) % Eos % (Auto) (0.0-7.0) % Baso % (Auto) (0.0-3.0) % Neut # (Auto) (1.7-7.0) K/uL Lymph # (Auto) (0.90-2.90) K/uL [place] # (Auto) (0.00-0.90) K/UL Eos # (Auto) (0.00-0.50) K/uL Baso # (Auto) (0.00-0.30) K/uL Abs Immat Gran (auto) (0.00-0.30) K/uL Imm/Tot Granulo (auto) % Sodium 123 L* 123 L* (135-149) mmol/L Potassium 3.4 L 3.6 (3.6-5.1) mmol/L Chloride 93 L 93 L (96-114) mmol/L Carbon Dioxide 24 23 (20-32) mmol/L Anion Gap 6 L 7 (7-15) mEq/L BUN 6 L 7 (7-30) mg/dL Creatinine 0.4 L 0.4 L (0.5-1.5) mg/dL Estimated Creat Clear 52.91 52.91 Estimated GFR 110 110 ml/min Glucose 96 85 (60-115) mg/dL Calcium 8.9 9.0 (8.4-10.6) mg/dL Total Bilirubin (0.1-1.5) mg/dL Direct Bilirubin (0.0-0.5) mg/dL AST (12-35) U/L ALT (4-35) U/L Alkaline Phosphatase (40-150) U/L C-Reactive Protein (0.5-1.0) mg/dL Total Protein (6.0-8.3) g/dL Albumin (3.3-5.0) g/dL Lipase (23-300) U/L Urine Color (Yellow) Urine Appearance (Clear) Urine pH (5.0-8.5) Ur Specific [place] (1.000-1.030) Urine Protein (Negative) Urine Glucose (UA) (Negative) Urine Ketones (Negative) Urine Blood (Negative) Urine Nitrite (Negative) Urine Bilirubin (Negative) Urine Urobilinogen (0.2-1.0) Ur Leukocyte Esterase (Negative) Urine RBC (0-2) Urine WBC (0-5) Ur Squamous Epith Cells (None-Few) Urine Bacteria (None) Salicylates (1.0-10) mg/dL Acetaminophen (10.0-30.0) ug/mL Ethyl Alcohol (0.01-0.03) % Lab Acknowledgement <Sharath Gomez MD - Last Filed: 01/21/23 08:11> Imaging Data Abdominal x-ray: Attestation: I have reviewed the pertinent imaging results. <Chaya Colon MD - Last Filed: 01/20/23 21:26> Radiologist's impression: Flat and upright abdominal radiographs. COMPARISON: No prior. FINDINGS: No free intraperitoneal air. No bowel obstruction. Patient does not appear excessively constipated. Pelvic calcifications likely represent phleboliths. There are degenerative changes of the spine. IMPRESSION: 1. No obstruction or free air. 2. Patient does not appear constipated. <Chaya Colon MD - Last Filed: 01/20/23 21:26> Critical Care Time Critical Care Time Critical Care Time: Yes (Hyponatremia with sodium less than 123, ICU admission) Attestation: The patient required my highest level preparedness to intervene emergently and I personally spent this critical care time directly and personally managing the patient. This critical care time included: Obtaining a history; Examining the patient; Pulse oximetry; Ordering and reviewing of studies; Arranging urgent treatment with development of a management plan; Evaluation of patients response to treatment; Frequent reassessment discussions with other providers. This critical care time was performed to assess and manage the high probability of imminent life-threatening deterioration that could result in multiorgan failure. It was exclusive of separate billable procedures and treating other patients and teaching time. <Sharath Gomez MD - Last Filed: 01/21/23 08:11> Total Critical Care Time in Minutes: 130 <Sharath Gomez MD - Last Filed: 01/21/23 08:11> Discharge Plan Discharge Clinical Impression: Acute hyponatremia <Chaya Colon MD - Last Filed: 01/20/23 21:26> Patient Disposition: Admitted As Inpatient <Chaya Colon MD - Last Filed: 01/20/23 21:26> Activity Level: Activity as Tolerated <Chaya Colon MD - Last Filed: 01/20/23 21:26> Activity as Tolerated <Madan Youssef MD - Last Filed: 01/21/23 01:08> Activity as Tolerated <Sharath Gomez MD - Last Filed: 01/21/23 08:11> Discharge Diet: 1500 ml Fluid Restriction <Chaya Colon MD - Last Filed: 01/20/23 21:26> 1500 ml Fluid Restriction <Madan Youssef MD - Last Filed: 01/21/23 01:08> 1500 ml Fluid Restriction <Sharath Gomez MD - Last Filed: 01/21/23 08:11>
--- NOTE | 2023-01-20 20:03 | ED.NURSE ---
report given to oncoming RN
[2023-01-20 20:07] LABS: Basophils Absolute Auto 0.02 K/uL (0.00-0.30); Basophils Percent Auto 0.2 % (0.0-3.0); Eosinophils Absolute Auto 0.04 K/uL (0.00-0.50); Eosinophils Percent Auto 0.5 % (0.0-7.0); Hematocrit 38.5 % (33.0-51.0); Hemoglobin* 13.8 gm/dL (12.0-16.0); Immature Granulocytes Abs Auto 0.01 K/uL (0.00-0.30); Immature Granulocytes Pct Auto 0.1 %; Lymphocytes Percent Auto 14.9 % (20-44); Mean Corpuscular HGB Conc 36 gm/dL (32-36); Mean Corpuscular Hemoglobin 29 pg (26-34); Mean Corpuscular Volume 82 fL (80-100); Neutrophils Percent Auto 78.3 % (42.0-72.0); Platelet Count* 243 K/uL (140-440); RDW Coefficient of Variation % 11.8 % (11.5-15.5); Red Blood Count 4.69 m/uL (4.00-5.20); White Blood Count* 8.54 K/uL (4.50-11.00)
[2023-01-20 20:08] LABS: Slide Review Reflex No
[2023-01-20 20:22] LABS: Albumin* 4.4 g/dL (3.3-5.0); Chloride* 81 mmol/L (96-114)
[2023-01-20 20:23] LABS: Potassium* 3.5 mmol/L (3.6-5.1)
[2023-01-20 20:25] LABS: Anion Gap 7 mEq/L (7-15); Aspartate Amino Transferase* 180 U/L (12-35); Bilirubin Total* 1.5 mg/dL (0.1-1.5); Carbon Dioxide* 25 mmol/L (20-32); Creatinine* 0.5 mg/dL (0.5-1.5); Est. Creatinine Clearance* 52.91; Estimated Glomerular Filt Rate 105 ml/min; Total Protein* 7.2 g/dL (6.0-8.3)
[2023-01-20 20:26] LABS: Alanine Aminotransferase* 102 U/L (4-35); Alkaline Phosphatase* 55 U/L (40-150); Blood Urea Nitrogen* 8 mg/dL (7-30); Calcium* 9.4 mg/dL (8.4-10.6); Glucose* 102 mg/dL (60-115); Lipase* 60 U/L (23-300)
[2023-01-20 20:29] LABS: Sodium* 113 mmol/L (135-149)
[2023-01-20 20:30] LABS: C Reactive Protein* < 0.5 mg/dL (0.5-1.0)
[2023-01-20] MEDS: 0.9 % SODIUM CHLORIDE 1000 ml 1,000 ML 500 ML IV (21:38)
[2023-01-20 22:44] LABS: Appearance Urine Clear (Clear); Bilirubin Urine Negative (Negative); Blood Urine Trace-intact (Negative); Color Urine Yellow (Yellow); Glucose Urine Negative (Negative); Ketones Urine 2+ (Negative); Leukocyte Esterase Urine Negative (Negative); Nitrite Urine Negative (Negative); Protein Urine Negative (Negative); Urobilinogen Urine 0.2 (0.2-1.0)
[2023-01-20 22:57] LABS: Acetaminophen* < 10.0 ug/mL (10.0-30.0); Ethanol* < 0.01 % (0.01-0.03); Salicylate* < 1.0 mg/dL (1.0-10)
[2023-01-20 22:58] LABS: RBC Urine 0-2 (0-2); Squamous Epithelial Cell Urine Few (None-Few); WBC Urine 0-2 (0-5)
[2023-01-20] MEDS: 0.9 % SODIUM CHLORIDE 1000 ml 1,000 ML 150 ML IV (23:44)
[2023-01-21] VITALS (22 sets, daily range): BP systolic 100–126; BP diastolic 66–83; PULSE 70–88; RESP 12–18; TEMP 36.1–36.8; O2SAT 96–100; BMI 19.3
--- NOTE | 2023-01-21 00:06 | CRLHL7_ITS ---
For Patients: As a result of the Century Cures Act, medical imaging exams and procedure reports are released immediately into your electronic medical record. You may view this report before your referring provider. If you have questions, please contact your health care provider. INDICATION: Hyponatremia. TECHNIQUE: Chest 2 views. COMPARISON: None. FINDINGS: Cardiovascular and mediastinum: Heart size and vasculature are normal in caliber and appearance. Lungs and pleural spaces: Lungs are clear. No sign of infiltrate or mass. No sign of pleural effusion. No pneumothorax. Bones and soft tissues: Left mastectomy. Right breast implant. IMPRESSION: No acute cardiopulmonary abnormality. Dictated by Corona Salazar MD @ 01/21/2023 12:55:55 AM (Electronically Signed)
[2023-01-21 00:07] LABS: Chloride* 89 mmol/L (96-114); Potassium* 3.5 mmol/L (3.6-5.1)
[2023-01-21 00:10] LABS: Anion Gap 8 mEq/L (7-15); Blood Urea Nitrogen* 7 mg/dL (7-30); Calcium* 9.1 mg/dL (8.4-10.6); Carbon Dioxide* 22 mmol/L (20-32); Creatinine* 0.4 mg/dL (0.5-1.5); Est. Creatinine Clearance* 52.91; Estimated Glomerular Filt Rate 110 ml/min; Glucose* 89 mg/dL (60-115)
[2023-01-21 00:18] LABS: Sodium* 119 mmol/L (135-149)
[2023-01-21] MEDS: 0.9 % SODIUM CHLORIDE 1000 ml 1,000 ML 125 ML IV (00:50)
[2023-01-21 02:59] LABS: Chloride* 93 mmol/L (96-114); Potassium* 3.4 mmol/L (3.6-5.1)
[2023-01-21 03:02] LABS: Anion Gap 6 mEq/L (7-15); Blood Urea Nitrogen* 7 mg/dL (7-30); Calcium* 8.8 mg/dL (8.4-10.6); Carbon Dioxide* 23 mmol/L (20-32); Creatinine* 0.4 mg/dL (0.5-1.5); Est. Creatinine Clearance* 52.91; Estimated Glomerular Filt Rate 110 ml/min; Glucose* 88 mg/dL (60-115)
[2023-01-21 03:05] LABS: Sodium* 122 mmol/L (135-149)
[2023-01-21] MEDS: 5 % DEXTROSE 1000 ML 1,000 ML 150 ML IV (03:47)
[2023-01-21 05:59] LABS: Chloride* 93 mmol/L (96-114); Potassium* 3.4 mmol/L (3.6-5.1)
[2023-01-21 06:02] LABS: Anion Gap 6 mEq/L (7-15); Blood Urea Nitrogen* 6 mg/dL (7-30); Carbon Dioxide* 24 mmol/L (20-32); Creatinine* 0.4 mg/dL (0.5-1.5); Est. Creatinine Clearance* 52.91; Estimated Glomerular Filt Rate 110 ml/min
[2023-01-21 06:03] LABS: Calcium* 8.9 mg/dL (8.4-10.6); Glucose* 96 mg/dL (60-115)
[2023-01-21 06:04] LABS: Sodium* 123 mmol/L (135-149)
[2023-01-21 07:55] LABS: Chloride* 93 mmol/L (96-114); Potassium* 3.6 mmol/L (3.6-5.1)
[2023-01-21 07:58] LABS: Anion Gap 7 mEq/L (7-15); Blood Urea Nitrogen* 7 mg/dL (7-30); Carbon Dioxide* 23 mmol/L (20-32); Creatinine* 0.4 mg/dL (0.5-1.5); Est. Creatinine Clearance* 52.91; Estimated Glomerular Filt Rate 110 ml/min; Glucose* 85 mg/dL (60-115)
--- NOTE | 2023-01-21 08:03 | ED.NURSE ---
Ordered breakfast. Patient stated that she has been under a lot of stress with moving. Has been drinking a lot of water. Thinks this is why her sodium is low.
[2023-01-21 08:09] LABS: Sodium* 123 mmol/L (135-149)
--- NOTE | 2023-01-21 08:54 | ED.NURSE ---
Report given to JENNIFER Varghese on M/S. All belongings sent with patient. Ate 100% of breakfast and had 1 cup of coffee.
--- NOTE | 2023-01-21 09:59 | P.IMHP_ITS ---
Hospitalist- H&P: HPI History of Present Illness Date Seen: 01/21/23 Chief complaint: No stool passed in a few days, coming out the top Narrative: Marisol Hernandez is a 62 year old female past medical history significant for breast cancer (2002) s/p mastectomy, chemoradiation therapy, otherwise not currently on any prescription medications is admitted to the medical floor from the ED for acute hyponatremia. Patient presented to ED last evening complaining of feeling constipated along w ith feeling worn out with recent nausea vomiting. She tells me she has had a long history of difficulty with passing stools. She has frequently used water enemas on her own, the last being last week. She denies using any sort of herbal enemas. She attempted a digital stimulation in the last several days as well. She did pass a small amount of stool yesterday. She also reports vomiting with any sort of oral intake, other than water, over the last 2-3 days. When asked about water intake, she reports drinking 5 x 20oz tumblers of water daily. She admits to a high level of stress over the last several months as she has been planning for a move to [place]. Her moving trucks are actually packed and waiting for her when she gets out of the hospital. A friend of hers finally brought her to the ED yesterday seeing as she was not feeling well. In the ED, initial sodium noted to be 113. Following normal saline and D5 IVF, sodium has increased to 123 and has remained at 123 on recheck. Currently, patient reports feeling much better. Denies headache or dizziness. No change in mentation reported. Had some chills over the past few days. No fevers. Denies chest pain or shortness of breath. Has had abdominal discomfort, feeling constipated. Feels as though her rectum is swollen and tight, a chronic sensation recently worsening. Patient is not currently on any prescription medications. Denies use of herbal remedies. Admits to chronic use of water enemas as needed. No known thyroid disorder. Oral intake of water around 3L daily as above. Nonsmoker. When asked about alcohol use states she would occasionally, not daily but weekly, have a drink while making dinner. She is vague but admits this may have increased recently with stress. Review of Systems Narrative: REVIEW OF SYSTEMS: Complete review of systems performed and negative unless otherwise stated in HPI or below. PFSH PFSH Medical History (Updated 01/21/23 @ 10:46 by Heather Alvarez PA-C) Breast cancer ?C50.919 - Malignant neoplasm of unspecified site of unspecified female breast (ICD-10) Social History What is your current living situation?: I presently have a place to live Problems where you live: no known problems Problems where you live details: none In the past 12 months, utilities in danger of being shut off: no In past 12 months, lack of transportation kept you from medical appts, meetings, work, or getting things needed for daily living: no In the past 12 mos, have been you worried that your food would run out before you had money to buy more?: never true In the past 12 mos, the food you bought just didn't last and you didn't have money to buy more?: never true Highest level of school completed/degree received: some college, no degree Smoking Status: Never smoker Do you use any of these nicotine containing products: None How often do you have a drink containing alcohol: 2-3 times a week How many standard drinks containing alcohol do you have on a typical day: 1 or 2 How often do you have six or more drinks on one occasion: Never AUDIT-C Alcohol total score: 3 Non-prescribed substance use: denies use Caffeine: Yes (cofee) How often does anyone, including family, friends and others, physically hurt you : never How often does anyone, including family, friends and others, insult or talk down to you: sometimes How often does anyone, including family, friends and others, threaten you with harm: never How often does anyone, including family, friends and others, scream or curse at you: sometimes service: No Meds Home Medications and Allergies Home Medications Medication Instructions Recorded Confirmed Type No Known Home Medications 01/20/23 01/20/23 History Allergies Allergy/AdvReac Type Severity Reaction Status Date / Time No Known Drug Allergies Allergy Verified 01/20/23 19:17 Exam Narrative: Exam Narrative: PHYSICAL EXAM General: Lying reclined in bed,very pleasant, conversant, NAD HEENT: Normocephalic, atraumatic, sclera white, EOMI, oral mucosa moist Cardiovascular: RRR, S1S2. No pitting edema Pulmonary: CTA bilaterally without rhonchi, rales, expiratory wheezes. No dyspnea Abdominal: Soft, nondistended, mild tenderness left upper quadrant, no guarding Neurological: Alert, answering questions appropriately, cranial nerves intact, no focal findings Extremities: No gross joint deformity or swelling. AROMI Skin: Warm, dry. No rash on exposed skin Const: Vital Signs, click to edit/add: Vital Signs - 24 hr 01/20/23 19:15 01/20/23 21:41 01/20/23 22:55 Temperature 98.1 F Pulse Rate 79 Pulse Rate [Left P ulse Oximeter] 97 79 Respiratory Rate 16 20 Blood Pressure Blood Pressure [Ri ght Arm] Blood Pressure [Ri ght Upper Arm] 150/93 H 142/85 H Pulse Oximetry 100 100 [facility] 01/20/23 22:57 01/20/23 23:00 01/20/23 23:03 Temperature Pulse Rate 73 71 79 Pulse Rate [Left P ulse Oximeter] Respiratory Rate Blood Pressure 124/81 114/77 Blood Pressure [Ri ght Arm] Blood Pressure [Ri ght Upper Arm] Pulse Oximetry 100 99 99 Oxygen Delivery Me thod 01/20/23 23:04 01/20/23 23:15 01/20/23 23:30 Temperature Pulse Rate 79 74 73 Pulse Rate [Left P ulse Oximeter] Respiratory Rate Blood Pressure Blood Pressure [Ri ght Arm] Blood Pressure [Ri ght Upper Arm] Pulse Oximetry 98 98 99 Oxygen Delivery Me thod 01/20/23 23:45 01/21/23 00:00 01/21/23 00:02 Temperature Pulse Rate 73 75 77 Pulse Rate [Left P ulse Oximeter] Respiratory Rate 16 Blood Pressure 120/81 Blood Pressure [Ri ght Arm] Blood Pressure [Ri ght Upper Arm] Pulse Oximetry 100 98 100 Oxygen Delivery Me thod 01/21/23 00:15 01/21/23 03:45 01/21/23 03:46 Temperature Pulse Rate 75 86 74 Pulse Rate [Left P ulse Oximeter] Respiratory Rate Blood Pressure 112/69 Blood Pressure [Ri ght Arm] Blood Pressure [Ri ght Upper Arm] Pulse Oximetry 99 97 98 [facility] 01/21/23 04:02 01/21/23 05:02 01/21/23 06:02 Temperature Pulse Rate 70 73 72 Pulse Rate [Left P ulse Oximeter] Respiratory Rate 16 18 16 Blood Pressure 108/67 117/79 110/77 Blood Pressure [Ri ght Arm] Blood Pressure [Ri ght Upper Arm] Pulse Oximetry 98 98 96 Oxygen Delivery Me thod 01/21/23 07:47 01/21/23 07:48 01/21/23 09:05 Temperature 96.9 F L 98.1 F Pulse Rate 80 76 Pulse Rate [Left P ulse Oximeter] 83 Respiratory Rate 16 16 Blood Pressure 126/83 Blood Pressure [Ri ght Arm] 112/69 Blood Pressure [Ri ght Upper Arm] Pulse Oximetry 100 100 100 Oxygen Delivery Me thod Room Air Hospitalist - H&P: Result Labs Labs: Short CBC 01/20/23 Range/Units 19:55 WBC 8.54 (4.50-11.00) K/uL Hgb 13.8 (12.0-16.0) gm/dL Hct 38.5 (33.0-51.0) % Plt Count 243 (140-440) K/uL BMP 01/20/23 01/20/23 01/21/23 19:55 23:45 02:35 Sodium 113 L* 119 L* 122 L* Potassium 3.5 L 3.5 L 3.4 L Chloride 81 L 89 L 93 L Carbon Dioxide 25 22 23 BUN 8 7 7 Creatinine 0.5 0.4 L 0.4 L Glucose 102 89 88 Calcium 9.4 9.1 8.8 01/21/23 01/21/23 05:35 07:33 Sodium 123 L* 123 L* Potassium 3.4 L 3.6 Chloride 93 L 93 L Carbon Dioxide 24 23 BUN 6 L 7 Creatinine 0.4 L 0.4 L Glucose 96 85 Calcium 8.9 9.0 Liver Function 01/20/23 Range/Units 19:55 Total Bilirubin 1.5 (0.1-1.5) mg/dL Direct Bilirubin 0.0 (0.0-0.5) mg/dL AST 180 H (12-35) U/L ALT 102 H (4-35) U/L Alkaline Phosphatase 55 (40-150) U/L Albumin 4.4 (3.3-5.0) g/dL Urine 01/20/23 Range/Units 22:40 Urine Color Yellow (Yellow) Urine Appearance Clear (Clear) Urine pH 7.0 (5.0-8.5) Ur Specific [place] 1.010 (1.000-1.030) Urine Protein Negative (Negative) Urine Glucose (UA) Negative (Negative) Imaging Abdominal x-ray: Attestation: I have reviewed the pertinent imaging results. Radiologist's impression: No free intraperitoneal air. No bowel obstruction. Patient does not appear excessively constipated. Pelvic calcifications likely represent phleboliths. There are degenerative changes of the spine. IMPRESSION: 1. No obstruction or free air. 2. Patient does not appear constipated. US - abdomen: Radiologist's impression: FINDINGS: Liver: Geographic circumscribed focus of homogeneously increased echotexture in the anterior left hepatic lobe in the expected region of the intersegmental fissure consistent with focal fat. Incidental 1.0 cm with left hepatic lobe anterior subcapsular simple cyst. No suspicious masses. No intrahepatic biliary dilatation. Gallbladder: Multiple round echogenic non shadowing finding is in the lumen of the gallbladder, some of which are associated with nondependent wall, none larger than 4 mm. Differential diagnostic considerations include (adherent) stones and/or gallbladder polyps. If the latter, the morphology is consistent with extremely low risk gallbladder polyps. Based on size, no follow-up is indicated. No gallbladder wall thickening or pericholecystic fluid. Negative sonographic Arredondo`s sign. Common bile duct: 6 mm. Pancreas: Unremarkable. Right kidney: Normal in size. Normal echotexture and cortex. No suspicious masses, stones, or hydronephrosis. Incidental 2.1 cm anechoic unilocular benign right upper pole renal cortical cyst. Vasculature: Proximal abdominal aorta and IVC are unremarkable. IMPRESSION: Common duct caliber is at or just below the upper limit of normal (7 mm for a patient of this age). No intrahepatic biliary duct dilatation. Gallstones and/or polyps discussed above. No sonographic findings of acute cholecystitis. Incidental findings described in the body of the report. Chest x-ray: Radiologist's impression: FINDINGS: Cardiovascular and mediastinum: Heart size and vasculature are normal in caliber and appearance. Lungs and pleural spaces: Lungs are clear. No sign of infiltrate or mass. No sign of pleural effusion. No pneumothorax. Bones and soft tissues: Left mastectomy. Right breast implant. IMPRESSION: No acute cardiopulmonary abnormality. Assessment and Plan Assessment and plan (1) Acute hyponatremia: Problem comment: -acute, without previous known history, suspected to be dilutional, possibly alcohol related -113 in ED. Currently 123. Given the rapid increase, will monitor closely, seizure precautions -continue D5 at 75 mL/HR -free water fluid restriction 2 L -sodium level q.4 hours -telemetry -osmolality and urine sodium ordered in ED, pending -TSH, EtOH ordered -given vague history of alcohol use, hyponatremia, transaminitis will monitor with CIWA. MVI, thiamine, folic acid daily Status: Acute (2) Transaminitis: Problem comment: -AST 180, ALT 102, ratio 1.76 -US shows a simple cyst and focal fat -hepatitis panel ordered in ED, pending -recheck LFTs in a.m. Status: Acute (3) Constipation: Problem comment: -plain film without evidence of obstipation or significant fecal content -senna b.i.d., MiraLax p.r.n. -discussed outpatient follow-up for further workup and management recommendations for constipation and rectal sensations Status: Acute (4) Vomiting: Problem comment: -resolved, tolerated breakfast this morning -Zofran p.r.n., PPI daily Status: Acute (5) Hypokalemia: Problem comment: -resolved, potassium 3.6, recheck in a.m. -magnesium ordered Status: Acute Plan CODE: DNR/DNI as discussed with patient, POLST reviewed VTE PPX: Enoxaparin Disposition: Inpatient
[2023-01-21 10:28] LABS: Lab Add On Test New Spec Needed
[2023-01-21] MEDS: OMEPRAZOLE 20 MG CAPSULE DR 40 MG PO (10:30)
[2023-01-21 12:34] LABS: Sodium* 127 mmol/L (135-149)
[2023-01-21] MEDS: THIAMINE 100 MG TABLET PO (13:25)
--- NOTE | 2023-01-21 15:28 | PC.NURSE ---
End of Shift: Patient pleasant and cooperative. Patient vitally stable, lung clear, BS WNL, IV running D5 at 150. Patient independent in room and urinating. No BM. Patient rates some abdominal discomfort 3-4/10, no pain meds given. Patient tolerating regular diet.
[2023-01-21] MEDS: 5 % DEXTROSE 1000 ML 1,000 ML 250 ML IV (16:14)
[2023-01-21 16:22] LABS: Sodium* 128 mmol/L (135-149)
[2023-01-21 16:41] LABS: Ethanol* < 0.01 % (0.01-0.03)
--- NOTE | 2023-01-21 17:08 | PM.IMPN1 ---
Subjective Date Seen: 01/21/23 Interval history: cross cover patient sodium on admission last night 113; increased to 127 around noon today; I ordered stat recheck sodium ordered 128 Plan D5W 350cc/hr start desmopressin goal correction is 4-6 meq over 24 hours (119 around 8pm tonight) q2h sodium for now discussed with Pharmacy and RN Exam Const: Vital Signs, click to edit/add: Vital Signs - 24 hr 01/20/23 19:15 01/20/23 21:41 01/20/23 22:55 Temperature 98.1 F Pulse Rate 79 Pulse Rate [Left P ulse Oximeter] 97 79 Respiratory Rate 16 20 Blood Pressure Blood Pressure [Ri ght Arm] Blood Pressure [Ri ght Upper Arm] 150/93 H 142/85 H Pulse Oximetry 100 100 [facility] 01/20/23 22:57 01/20/23 23:00 01/20/23 23:03 Temperature Pulse Rate 73 71 79 Pulse Rate [Left P ulse Oximeter] Respiratory Rate Blood Pressure 124/81 114/77 Blood Pressure [Ri ght Arm] Blood Pressure [Ri ght Upper Arm] Pulse Oximetry 100 99 99 [facility] 01/20/23 23:04 01/20/23 23:15 01/20/23 23:30 Temperature Pulse Rate 79 74 73 Pulse Rate [Left P ulse Oximeter] Respiratory Rate Blood Pressure Blood Pressure [Ri ght Arm] Blood Pressure [Ri ght Upper Arm] Pulse Oximetry 98 98 99 [facility] 01/20/23 23:45 01/21/23 00:00 01/21/23 00:02 Temperature Pulse Rate 73 75 77 Pulse Rate [Left P ulse Oximeter] Respiratory Rate 16 Blood Pressure 120/81 Blood Pressure [Ri ght Arm] Blood Pressure [Ri ght Upper Arm] Pulse Oximetry 100 98 100 Oxygen Delivery Me od 01/21/23 00:15 01/21/23 03:45 01/21/23 03:46 Temperature Pulse Rate 75 86 74 Pulse Rate [Left P ulse Oximeter] Respiratory Rate Blood Pressure 112/69 Blood Pressure [Ri ght Arm] Blood Pressure [Ri ght Upper Arm] Pulse Oximetry 99 97 98 [facility] 01/21/23 04:02 01/21/23 05:02 01/21/23 06:02 Temperature Pulse Rate 70 73 72 Pulse Rate [Left P ulse Oximeter] Respiratory Rate 16 18 16 Blood Pressure 108/67 117/79 110/77 Blood Pressure [Ri ght Arm] Blood Pressure [Ri ght Upper Arm] Pulse Oximetry 98 98 96 Oxygen Delivery Me thod 01/21/23 07:47 01/21/23 07:48 01/21/23 09:05 Temperature 96.9 F L 98.1 F Pulse Rate 80 76 Pulse Rate [Left P ulse Oximeter] 83 Respiratory Rate 16 16 Blood Pressure 126/83 Blood Pressure [Ri ght Arm] 112/69 Blood Pressure [Ri ght Upper Arm] Pulse Oximetry 100 100 100 Oxygen Delivery Me thod Room Air 01/21/23 10:19 01/21/23 10:42 01/21/23 12:09 Temperature 98.1 F 98.2 F Pulse Rate Pulse Rate [Left P ulse Oximeter] 78 Respiratory Rate 16 16 12 Blood Pressure Blood Pressure [Ri ght Arm] 112/69 110/76 Blood Pressure [Ri ght Upper Arm] Pulse Oximetry 100 100 98 Oxygen Delivery Me thod Room Air Room Air Room Air 01/21/23 12:13 01/21/23 12:19 01/21/23 15:00 Temperature 98.2 F Pulse Rate 79 88 Pulse Rate [Left P ulse Oximeter] 78 Respiratory Rate 12 Blood Pressure Blood Pressure [Ri ght Arm] 110/76 Blood Pressure [Ri ght Upper Arm] Pulse Oximetry 98 Oxygen Delivery Me thod Room Air Labs Labs: Laboratory Results - last 24 hr 01/20/23 01/20/23 01/20/23 16:55 19:55 22:40 WBC 8.54 RBC 4.69 Hgb 13.8 Hct 38.5 MCV 82 MCH 29 MCHC 36 RDW Coeff of Allen 11.8 Plt Count 243 Neut % (Auto) 78.3 H Lymph % (Auto) 14.9 L Hooker % (Auto) 6.0 Eos % (Auto) 0.5 Baso % (Auto) 0.2 Neut # (Auto) 6.70 Lymph # (Auto) 1.30 Hooker # (Auto) 0.50 Eos # (Auto) 0.04 Baso # (Auto) 0.02 Abs Immat Gran (auto) 0.01 Imm/Tot Granulo (auto) 0.1 Sodium 113 L* Potassium 3.5 L Chloride 81 L Carbon Dioxide 25 Anion Gap 7 BUN 8 Creatinine 0.5 Estimated Creat Clear 52.91 Estimated GFR 105 Glucose 102 Calcium 9.4 Total Bilirubin 1.5 Direct Bilirubin 0.0 AST 180 H ALT 102 H Alkaline Phosphatase 55 C-Reactive Protein < 0.5 L Total Protein 7.2 Albumin 4.4 Lipase 60 TSH Urine Color Yellow Urine Appearance Clear Urine pH 7.0 Ur Specific [place] 1.010 Urine Protein Negative Urine Glucose (UA) Negative Urine Ketones 2+ A Urine Blood Trace-intact A Urine Nitrite Negative Urine Bilirubin Negative Urine Urobilinogen 0.2 Ur Leukocyte Esterase Negative Urine RBC 0-2 Urine WBC 0-2 Ur Squamous Epith Cells Few Urine Bacteria None Salicylates < 1.0 L Acetaminophen < 10.0 L Ethyl Alcohol < 0.01 L Lab Acknowledgement 01/20/23 01/21/23 01/21/23 23:45 02:35 02:46 WBC RBC Hgb Hct MCV MCH MCHC RDW Coeff of Allen Plt Count Neut % (Auto) Lymph % (Auto) Hooker % (Auto) Eos % (Auto) Baso % (Auto) Neut # (Auto) Lymph # (Auto) Hooker # (Auto) Eos # (Auto) Baso # (Auto) Abs Immat Gran (auto) Imm/Tot Granulo (auto) Sodium 119 L* 122 L* Potassium 3.5 L 3.4 L Chloride 89 L 93 L Carbon Dioxide 22 23 Anion Gap 8 6 L BUN 7 7 Creatinine 0.4 L 0.4 L Estimated Creat Clear 52.91 52.91 Estimated GFR 110 110 Glucose 89 88 Calcium 9.1 8.8 Total Bilirubin Direct Bilirubin AST ALT Alkaline Phosphatase C-Reactive Protein Total Protein Albumin Lipase TSH Urine Color Urine Appearance Urine pH Ur Specific [place] Urine Protein Urine Glucose (UA) Urine Ketones Urine Blood Urine Nitrite Urine Bilirubin Urine Urobilinogen Ur Leukocyte Esterase Urine RBC Urine WBC Ur Squamous Epith Cells Urine Bacteria Salicylates Acetaminophen Ethyl Alcohol Lab Acknowledgement Test Added 01/21/23 01/21/23 01/21/23 05:35 07:33 10:02 WBC RBC Hgb Hct MCV MCH MCHC RDW Coeff of Allen Plt Count Neut % (Auto) Lymph % (Auto) Hooker % (Auto) Eos % (Auto) Baso % (Auto) Neut # (Auto) Lymph # (Auto) Hooker # (Auto) Eos # (Auto) Baso # (Auto) Abs Immat Gran (auto) Imm/Tot Granulo (auto) Sodium 123 L* 123 L* Potassium 3.4 L 3.6 Chloride 93 L 93 L Carbon Dioxide 24 23 Anion Gap 6 L 7 BUN 6 L 7 Creatinine 0.4 L 0.4 L Estimated Creat Clear 52.91 52.91 Estimated GFR 110 110 Glucose 96 85 Calcium 8.9 9.0 Total Bilirubin Direct Bilirubin AST ALT Alkaline Phosphatase C-Reactive Protein Total Protein Albumin Lipase TSH Urine Color Urine Appearance Urine pH Ur Specific [place] Urine Protein Urine Glucose (UA) Urine Ketones Urine Blood Urine Nitrite Urine Bilirubin Urine Urobilinogen Ur Leukocyte Esterase Urine RBC Urine WBC Ur Squamous Epith Cells Urine Bacteria Salicylates Acetaminophen Ethyl Alcohol Lab Acknowledgement New Spec Needed 01/21/23 01/21/23 01/21/23 10:26 12:14 15:30 WBC RBC Hgb Hct MCV MCH MCHC RDW Coeff of Allen Plt Count Neut % (Auto) Lymph % (Auto) Hooker % (Auto) Eos % (Auto) Baso % (Auto) Neut # (Auto) Lymph # (Auto) [place] # (Auto) Eos # (Auto) Baso # (Auto) Abs Immat Gran (auto) Imm/Tot Granulo (auto) Sodium 127 L 128 L Potassium Chloride Carbon Dioxide Anion Gap BUN Creatinine Estimated Creat Clear Estimated GFR Glucose Calcium Total Bilirubin Direct Bilirubin AST ALT Alkaline Phosphatase C-Reactive Protein Total Protein Albumin Lipase TSH 1.890 Urine Color Urine Appearance Urine pH Ur Specific [place] Urine Protein Urine Glucose (UA) Urine Ketones Urine Blood Urine Nitrite Urine Bilirubin Urine Urobilinogen Ur Leukocyte Esterase Urine RBC Urine WBC Ur Squamous Epith Cells Urine Bacteria Salicylates Acetaminophen Ethyl Alcohol < 0.01 L Lab Acknowledgement 01/21/23 16:20 WBC RBC Hgb Hct MCV MCH MCHC RDW Coeff of Allen Plt Count Neut % (Auto) Lymph % (Auto) Hooker % (Auto) Eos % (Auto) Baso % (Auto) Neut # (Auto) Lymph # (Auto) [place] # (Auto) Eos # (Auto) Baso # (Auto) Abs Immat Gran (auto) Imm/Tot Granulo (auto) Sodium Potassium Chloride Carbon Dioxide Anion Gap BUN Creatinine Estimated Creat Clear Estimated GFR Glucose Calcium Total Bilirubin Direct Bilirubin AST ALT Alkaline Phosphatase C-Reactive Protein Total Protein Albumin Lipase TSH Urine Color Urine Appearance Urine pH Ur Specific [place] Urine Protein Urine Glucose (UA) Urine Ketones Urine Blood Urine Nitrite Urine Bilirubin Urine Urobilinogen Ur Leukocyte Esterase Urine RBC Urine WBC Ur Squamous Epith Cells Urine Bacteria Salicylates Acetaminophen Ethyl Alcohol Lab Acknowledgement Test Added
[2023-01-21] MEDS: DESMOPRESSIN ACETATE 4 MCG/ML inj 2 MCG IVP ×2 (17:32→23:34)
[2023-01-21] MEDS: 5 % DEXTROSE 1000 ML 1,000 ML 350 ML IV (19:25)
--- NOTE | 2023-01-21 19:38 | PC.NURSE ---
VSS AND AFEBRILE. LS CLEAR. BOWEL SOUNDS ACTIVE AND TOLERATING REGULAR DIET. PATIENT DENIES PAIN OR N/V. UP INDEPENDENTLY IN ROOM.
[2023-01-21 19:41] LABS: Sodium* 124 mmol/L (135-149)
[2023-01-21] MEDS: ENOXAPARIN 40 MG/0.4 ML INJ SUBCUT (21:27)
--- NOTE | 2023-01-21 21:27 | CRLHL7_ITS ---
For Patients: As a result of the Century Cures Act, medical imaging exams and procedure reports are released immediately into your electronic medical record. You may view this report before your referring provider. If you have questions, please contact your health care provider. INDICATION: Abnormal LFTs. TECHNIQUE: Ultrasound abdomen limited. Sonographic images of the right upper quadrant were obtained using echavarria-scale and color Doppler images. COMPARISON: No similar prior exam is available for comparison. FINDINGS: Liver: Geographic circumscribed focus of homogeneously increased echotexture in the anterior left hepatic lobe in the expected region of the intersegmental fissure consistent with focal fat. Incidental 1.0 cm with left hepatic lobe anterior subcapsular simple cyst. No suspicious masses. No intrahepatic biliary dilatation. Gallbladder: Multiple round echogenic non shadowing finding is in the lumen of the gallbladder, some of which are associated with nondependent wall, none larger than 4 mm. Differential diagnostic considerations include (adherent) stones and/or gallbladder polyps. If the latter, the morphology is consistent with extremely low risk gallbladder polyps. Based on size, no follow-up is indicated. No gallbladder wall thickening or pericholecystic fluid. Negative sonographic Arredondo`s sign. Common bile duct: 6 mm. Pancreas: Unremarkable. Right kidney: Normal in size. Normal echotexture and cortex. No suspicious masses, stones, or hydronephrosis. Incidental 2.1 cm anechoic unilocular benign right upper pole renal cortical cyst. Vasculature: Proximal abdominal aorta and IVC are unremarkable. IMPRESSION: Common duct caliber is at or just below the upper limit of normal (7 mm for a patient of this age). No intrahepatic biliary duct dilatation. Gallstones and/or polyps discussed above. No sonographic findings of acute cholecystitis. Incidental findings described in the body of the report. Dictated by Estiven Lyons MD @ 01/21/2023 8:30:17 AM (Electronically Signed)
[2023-01-21] MEDS: SENNOSIDES/DOCUSATE TABLET 1 TAB PO (21:28)
[2023-01-21 22:38] LABS: Potassium* 3.7 mmol/L (3.6-5.1)
[2023-01-21 22:42] LABS: Phosphorus* 2.4 mg/dL (2.5-4.5)
[2023-01-21 23:10] LABS: Sodium* 122 mmol/L (135-149)
[2023-01-21] MEDS: POTASSIUM PHOS/SODIUM PHOS 250 MG TABLET PO (23:34)
[2023-01-22] VITALS (9 sets, daily range): BP systolic 117–134; BP diastolic 79–89; PULSE 68–86; RESP 16–18; TEMP 36.5–36.8; O2SAT 98–100
[2023-01-22 01:17] LABS: Sodium* 122 mmol/L (135-149)
[2023-01-22] MEDS: 5 % DEXTROSE 1000 ML 1,000 ML 50 ML IV (03:14)
[2023-01-22 03:16] LABS: Hematocrit 32.4 % (33.0-51.0); Hemoglobin* 11.4 gm/dL (12.0-16.0); Mean Corpuscular HGB Conc 35 gm/dL (32-36); Mean Corpuscular Hemoglobin 30 pg (26-34); Mean Corpuscular Volume 85 fL (80-100); Platelet Count* 196 K/uL (140-440); White Blood Count* 5.18 K/uL (4.50-11.00)
[2023-01-22 03:22] LABS: Slide Review Reflex No
[2023-01-22 03:30] LABS: Albumin* 3.2 g/dL (3.3-5.0); Chloride* 94 mmol/L (96-114)
[2023-01-22 03:31] LABS: Potassium* 3.6 mmol/L (3.6-5.1)
[2023-01-22 03:33] LABS: Alkaline Phosphatase* 38 U/L (40-150); Anion Gap 5 mEq/L (7-15); Aspartate Amino Transferase* 83 U/L (12-35); Bilirubin Total* 0.7 mg/dL (0.1-1.5); Blood Urea Nitrogen* 10 mg/dL (7-30); Carbon Dioxide* 23 mmol/L (20-32); Creatinine* 0.4 mg/dL (0.5-1.5); Est. Creatinine Clearance* 50.18; Estimated Glomerular Filt Rate 110 ml/min; Glucose* 83 mg/dL (60-115); Total Protein* 5.6 g/dL (6.0-8.3)
[2023-01-22 03:34] LABS: Alanine Aminotransferase* 68 U/L (4-35); Calcium* 8.8 mg/dL (8.4-10.6)
[2023-01-22 03:40] LABS: Sodium* 122 mmol/L (135-149)
--- NOTE | 2023-01-22 06:07 | PC.NURSE ---
Shift note: Pt denies lightheadedness and dizziness, no c/o nausea. Sodium results reported to [facility] hospitalist during this shift.
[2023-01-22] MEDS: OMEPRAZOLE 20 MG CAPSULE DR 40 MG PO (07:35)
[2023-01-22] MEDS: FOLIC ACID 1 MG TABLET PO (07:36)
[2023-01-22] MEDS: SENNOSIDES/DOCUSATE TABLET 1 TAB PO ×2 (07:37→21:00)
[2023-01-22] MEDS: MULTIVITAMIN/MINERALS 1 TABLET 1 TAB PO (07:38)
[2023-01-22] MEDS: polyethylene glycoL 3350 17 GM PACK PO (07:38)
[2023-01-22 07:58] LABS: Magnesium* 1.6 mg/dL (1.5-2.6)
[2023-01-22 08:00] LABS: Sodium* 122 mmol/L (135-149)
[2023-01-22] MEDS: POTASSIUM PHOS/SODIUM PHOS 250 MG TABLET PO ×4 (09:05→21:00)
[2023-01-22] MEDS: THIAMINE 100 MG TABLET PO (10:34)
--- NOTE | 2023-01-22 11:58 | PM.IMPN1 ---
Progress Note: A&P Assessment and plan (1) Acute hyponatremia: Problem details: -acute, without previous known history, suspected to be dilutional, possibly alcohol related -sodium increased to 128 from 113 in just under 24 hours despite discontinuation of normal saline and initiation of D5. Received desmopressin and D5 at 350 mL overnight resulting in a sodium of 122 -IVF have been held. Further management pending next sodium level -change fluid restriction from 2 L to 1800 mL -sodium level q.4 hours -telemetry -osmolality and urine sodium pending -TSH 1.89, EtOH on admission unremarkable -given vague history of alcohol use, hyponatremia, transaminitis will monitor with CIWA. MVI, thiamine, folic acid daily Status: Acute (2) Transaminitis: Problem details: -AST 180, ALT 102, ratio 1.76 on admission - trending down -US shows a simple cyst and focal fat -hepatitis panel pending Status: Acute (3) Constipation: Problem details: -plain film without evidence of obstipation or significant fecal content. Resumed regular diet following episodes of vomiting at home. Remains focused on bowels. -senna b.i.d., psyllium qd, MiraLax p.r.n. - will need to monitor in setting of fluid restriction -discussed outpatient follow-up for further workup and management recommendations for constipation and rectal sensations Status: Acute (4) Hypokalemia: Problem details: -resolved, potassium stable 3.6 -magnesium 1.6 Status: Acute Plan CODE: Full VTE PPX: Enoxaparin Disposition: Inpatient Time Spent With Patient Total time spent: Total time spent caring for the patient today was 45 minutes. This includes time spent for the visit reviewing the chart, time spent during the visit, time spent after the visit and documentation and planning in coordination of care. Subjective Date Seen: 01/22/23 Interval history: Patient reports continuing to feel well. Denies headache or dizziness. Tolerating all meals without further nausea. No vomiting. Concerned again that she has not had a bowel movement. Tells me that she administers water enemas at home only on an occasional basis. Prior to last week, maybe a month before that. 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 Nursing staff reports that she was quite on edge this morning, hyper focused on bowels, difficult to redirect. Coincidentally, patient apologizes to me for her behavior to the nurses earlier in the morning. Circling back on her alcohol use, patient reports last alcoholic drink was maybe last . Exam Narrative: Exam Narrative: PHYSICAL EXAM General: Sitting up in chair, very conversant, NAD HEENT: Normocephalic, atraumatic, sclera white, EOMI, oral mucosa moist Cardiovascular: RRR, S1S2. No pitting edema Pulmonary: CTA bilaterally without rhonchi, rales, expiratory wheezes. No dyspnea Neurological: Alert, answering questions appropriately, cranial nerves intact, no focal findings Extremities: No gross joint deformity or swelling. AROMI. Neurovascularly intact Skin: Warm, dry. Const: Vital Signs, click to edit/add: Vital Signs - 24 hr 01/21/23 12:09 01/21/23 12:13 01/21/23 12:19 Temperature 98.2 F 98.2 F Pulse Rate 79 Pulse Rate [Left P ulse Oximeter] 78 78 Respiratory Rate 12 12 Blood Pressure [Ri ght Arm] 110/76 110/76 Pulse Oximetry 98 98 [facility] 01/21/23 15:00 01/21/23 16:00 01/21/23 16:00 Temperature 98 F Pulse Rate 88 Pulse Rate [Left P ulse Oximeter] 80 80 Respiratory Rate 18 18 Blood Pressure [Ri ght Arm] 107/80 Pulse Oximetry 100 [facility] 01/21/23 20:00 01/21/23 20:00 01/21/23 23:00 Temperature 98 F 98 F Pulse Rate 84 Pulse Rate [Left P ulse Oximeter] 80 80 Respiratory Rate 18 18 Blood Pressure [Ri ght Arm] 112/78 112/78 Pulse Oximetry 100 100 Oxygen Delivery De thod Room Air Room Air 01/21/23 23:00 01/21/23 23:58 01/21/23 23:59 Temperature 98 F 98 F Pulse Rate Pulse Rate [Left P ulse Oximeter] 84 84 84 Respiratory Rate 18 18 18 Blood Pressure [Ri ght Arm] 100/66 100/66 Pulse Oximetry 97 97 [facility] Room Air 01/22/23 03:21 01/22/23 07:30 01/22/23 07:30 Temperature 98.2 F 97.7 F Pulse Rate Pulse Rate [Left P ulse Oximeter] 68 82 82 Respiratory Rate 18 18 Blood Pressure [Ri ght Arm] 117/84 131/86 Pulse Oximetry 98 99 Oxygen Delivery Me thod Room Air Room Air Labs Labs: Laboratory Results - last 24 hr 01/21/23 01/21/23 01/21/23 12:14 15:30 16:20 WBC RBC Hgb Hct MCV MCH MCHC Plt Count Sodium 127 L 128 L Potassium Chloride Carbon Dioxide Anion Gap BUN Creatinine Estimated Creat Clear Estimated GFR Glucose Calcium Phosphorus Magnesium Total Bilirubin Direct Bilirubin AST ALT Alkaline Phosphatase Total Protein Albumin Ethyl Alcohol < 0.01 L Lab Acknowledgement Test Added 01/21/23 01/21/23 01/22/23 19:15 22:45 00:55 WBC RBC Hgb Hct MCV MCH MCHC Plt Count Sodium 124 L* 122 L* 122 L* Potassium 3.7 Chloride Carbon Dioxide Anion Gap BUN Creatinine Estimated Creat Clear Estimated GFR Glucose Calcium Phosphorus 2.4 L Magnesium Total Bilirubin Direct Bilirubin AST ALT Alkaline Phosphatase Total Protein Albumin Ethyl Alcohol Lab Acknowledgement 01/22/23 01/22/23 01/22/23 03:05 03:05 07:28 WBC 5.18 RBC 3.80 L Hgb 11.4 L Hct 32.4 L MCV 85 MCH 30 MCHC 35 Plt Count 196 Sodium Cancelled 122 L* 122 L* Potassium 3.6 Chloride 94 L Carbon Dioxide 23 Anion Gap 5 L BUN 10 Creatinine 0.4 L Estimated Creat Clear 50.18 Estimated GFR 110 Glucose 83 Calcium 8.8 Phosphorus Magnesium 1.6 Total Bilirubin 0.7 Direct Bilirubin 0.0 AST 83 H ALT 68 H Alkaline Phosphatase 38 L Total Protein 5.6 L Albumin 3.2 L Ethyl Alcohol Lab Acknowledgement
[2023-01-22 12:20] LABS: Sodium* 122 mmol/L (135-149)
--- NOTE | 2023-01-22 14:31 | PC.NURSE ---
Patient up and ambulating independently in room. Tolerated regular diet. Restless and anxious this morning regarding move and upcoming telephone meeting at 0800. Patient more calm after breakfast and telephone meeting. Patient apologized for her behavior towards nurses. Was Perseverating about constipation. Denied any pain but reported discomfort in abdomen and low back from constipation. BS active. Patient was given Miralax and Senna. Did have a small BM this afternoon.
[2023-01-22] MEDS: bisacodyL 10 MG SUPP.RECT PR (17:26)
[2023-01-22] MEDS: SODIUM CHLORIDE 1 GM TABLET PO (17:27)
[2023-01-22] MEDS: MAGNESIUM HYDROXIDE 30 ML ORAL.SUSP PO (17:31)
[2023-01-22 17:55] LABS: Hep A Ab, IgM Negative (Negative); Hep B Core Ab, IgM Negative (Negative); Hep B Surface Antigen Negative (Negative); Hep C Ab by CIA Index 0.02 IV; Hep C Ab by CIA Interp Negative (Negative)
[2023-01-22 19:47] LABS: Sodium* 121 mmol/L (135-149)
[2023-01-22] MEDS: ENOXAPARIN 40 MG/0.4 ML INJ SUBCUT (21:00)
[2023-01-22] MEDS: SODIUM CHLORIDE 0.9 % (FLUSH) 10 ML SYRINGE 5 ML IVF (21:01)
[2023-01-22 21:08] LABS: Urine Osmolality 69 mOsm/kg (50-800)
[2023-01-23 00:31] VITALS: BP 114/80; PULSE 67; RESP 16; TEMP 36.6; O2SAT 97
[2023-01-23 03:00] VITALS: BP 108/72; PULSE 59; RESP 16; TEMP 36.7; O2SAT 97
[2023-01-23 04:00] VITALS: BP 108/72; PULSE 59; RESP 16; TEMP 36.7; O2SAT 97
--- NOTE | 2023-01-23 06:04 | PC.NURSE ---
Pt has been pleasant and cooperative this shift. she is up I in room. States she had a couple of squirts of stool after supp. VSS . Na remains stable at 121. Labs this am will see, Is on a 1800cc fluid restriction.
[2023-01-23 07:00] VITALS: BP 113/84; PULSE 71; PULSE 84; RESP 14; TEMP 36.8; O2SAT 99
[2023-01-23] MEDS: OMEPRAZOLE 20 MG CAPSULE DR 40 MG PO (07:01)
[2023-01-23 07:04] LABS: Hours Collected Random hr; Total Volume Random mL
[2023-01-23 07:52] LABS: Chloride* 95 mmol/L (96-114); Potassium* 3.8 mmol/L (3.6-5.1); Sodium* 125 mmol/L (135-149)
[2023-01-23 07:54] LABS: Creatinine* 0.3 mg/dL (0.5-1.5); Est. Creatinine Clearance* 51.85; Estimated Glomerular Filt Rate 118 ml/min
[2023-01-23 07:55] LABS: Anion Gap 5 mEq/L (7-15); Blood Urea Nitrogen* 4 mg/dL (7-30); Calcium* 9.3 mg/dL (8.4-10.6); Carbon Dioxide* 25 mmol/L (20-32); Glucose* 88 mg/dL (60-115)
[2023-01-23 08:00] VITALS: BP 113/84; PULSE 84; RESP 14; TEMP 36.8; O2SAT 99
[2023-01-23] MEDS: SODIUM CHLORIDE 1 GM TABLET PO (09:38)
[2023-01-23] MEDS: FOLIC ACID 1 MG TABLET PO (09:38)
[2023-01-23] MEDS: POTASSIUM PHOS/SODIUM PHOS 250 MG TABLET PO (09:39)
[2023-01-23] MEDS: PSYLLIUM HUSK (WITH SUGAR) 12 GM PACKET PO (09:39)
[2023-01-23] MEDS: SENNOSIDES/DOCUSATE TABLET 1 TAB PO (09:39)
[2023-01-23] MEDS: MULTIVITAMIN/MINERALS 1 TABLET 1 TAB PO (09:46)
[2023-01-23] MEDS: THIAMINE 100 MG TABLET PO (09:46)
--- NOTE | 2023-01-23 10:40 | NUTR.NU ---
RDN with MD consult for hyponatremia. RDN visited with patient whom agreed to diet education related to hyponatremia. Patient was vomiting recently and consuming 5 x 20 oz. bottles of water to stay hydrated. RDN recommended patient consume fluids for rehydration in order to not lose extra fluids such as Pedialyte, Gatorade, Powerade, etc the next time she is feeling unwell or vomiting/diarrhea. RDN provided educational materials ([employer], [facility]) and RDN's contact information. Patient was encouraged to contact RDN is she had any questions or concerns.
--- NOTE | 2023-01-23 11:22 | PC.NURSE ---
Discharge-- Pleasant and cooperative, alert and oriented patient was discharged to home ambulatory with friend at approximately 1115. VSS and pt is afebrile. SPO2 maintained >90% on RA. She denied any pain. Discharge education was provided including diagnosis info, symptoms to report, medications and follow up plan. All questions answered and SL was removed with tip intact.
--- NOTE | 2023-01-23 14:31 | PM.DS1 ---
DS: Providers Provider Time Seen by Provider: 09:00 Date Seen: 01/23/23 Date of admission: 01/21/23 08:45 Primary care physician: Not a Local Provider Admitting Clinician: Mao Savage MD Consults: 01/21/23 10:02 Consult to Pol[facility] [place] [CONS] Routine Comment: Reason for Consult:: Social Service Consult 01/23/23 09:57 Consult to Nutrition [CONS] Routine Comment: Reason for consult:: Miscellaneous Comment: Hyponatremia Attending Physician on discharge: Mao Savage MD Date of Discharge: 01/23/23 DS: Diagnosis Discharge Diagnosis (1) Acute hyponatremia: Status: Acute Problem details: -acute on chronic, suspected to be dilutional, possibly alcohol related -sodium increased to 128 from 113 in under 24 hours despite discontinuation of normal saline and initiation of D5 -later administered desmopressin and D5 -serum sodium dropped down to 120 and then gradually leia to 125 with fluid restriction and sodium chloride tabs -fluid restriction 1800 mL, plus NaCl 1 g po TID. -osmolality and urine sodium pending -given vague history of alcohol use, hyponatremia, transaminitis - monitored with CIWA. Empirically gave MVI, thiamine, folic acid (2) Hypokalemia: Status: Acute Problem details: -resolved, potassium stable 3.6 -magnesium 1.6 (3) Vomiting: Status: Acute Problem details: -resolved, tolerated oral intake -Zofran p.r.n., PPI daily (4) Transaminitis: Status: Acute Problem details: -AST 180, ALT 102, ratio 1.76 on admission - trending down -US of liver shows a simple cyst and focal fat -hepatitis panel pending DS: Summary Hospital Course Hospital Course: History of present illness: ?Marisol Hernandez is a 62 year old female past medical history significant for breast cancer (2002) s/p mastectomy, chemoradiation therapy, otherwise not currently on any prescription medications is admitted to the medical floor from the ED for acute hyponatremia. Patient presented to ED last evening complaining of feeling constipated along with feeling worn out with recent nausea vomiting. She tells me she has had a long history of difficulty with passing stools. She has frequently used water enemas on her own, the last being last week. She denies using any sort of herbal enemas. She attempted a digital stimulation in the last several days as well. She did pass a small amount of stool yesterday. She also reports vomiting with any sort of oral intake, other than water, over the last 2-3 days. When asked about water intake, she reports drinking 5 x 20oz tumblers of water daily. She admits to a high level of stress over the last several months as she has been planning for a move to [place]. Her moving trucks are actually packed and waiting for her when she gets out of the hospital. A friend of hers finally brought her to the ED yesterday seeing as she was not feeling well. In the ED, initial sodium noted to be 113. Following normal saline and D5 IVF, sodium has increased to 123 and has remained at 123 on recheck. Currently, patient reports feeling much better. Denies headache or dizziness. No change in mentation reported. Had some chills over the past few days. No fevers. Denies chest pain or shortness of breath. Has had abdominal discomfort, feeling constipated. Feels as though her rectum is swollen and tight, a chronic sensation recently worsening. Patient's condition gradually improved throughout the remainder of the hospitalization as specified above. Recommended patient see her primary care physician with the pre visit serum sodium level tomorrow, 01/24/2023. She is agreeable. Made arrangements for her for such. Also recommended that she will need to have follow-up thereafter. Status at Discharge Functional status at discharge: independent ambulation Overall status at discharge: patient is back to baseline Time Spent with Patient Time attestation: Total time spent providing and/or coordinating discharge services: Time spent: Greater than 30 minutes Exam Narrative: Exam Narrative: General: Sitting up in chair, fluidly ambulating in room and in halls, very conversant, NAD HEENT: Normocephalic, atraumatic, sclera white, EOMI, oral mucosa moist Cardiovascular: RRR, S1S2. No pitting edema Pulmonary: CTA bilaterally without rhonchi, rales, expiratory wheezes. No dyspnea Neurological: Alert, answering questions appropriately, cranial nerves intact, no focal findings Extremities: No gross joint deformity or swelling. AROMI. Neurovascularly intact Skin: Warm, dry. Const: Vital Signs, click to edit/add: Vital Signs - 24 hr 01/22/23 15:00 01/22/23 15:00 01/22/23 15:00 Temperature 98.0 F Pulse Rate 78 Pulse Rate [Left P ulse Oximeter] 81 81 Respiratory Rate 18 18 Blood Pressure [Ri ght Arm] 119/79 Pulse Oximetry 99 Oxygen Delivery Me thod Room Air 01/22/23 19:41 01/22/23 19:48 01/22/23 19:50 Temperature 98.1 F 98.1 F Pulse Rate 77 Pulse Rate [Left P ulse Oximeter] 78 Respiratory Rate 18 18 Blood Pressure [Ri ght Arm] 134/83 134/83 Pulse Oximetry 100 Oxygen Delivery Me thod Room Air 01/22/23 23:30 01/23/23 00:31 01/23/23 03:00 Temperature 98 F 98.1 F Pulse Rate 83 Pulse Rate [Left P ulse Oximeter] 67 59 L Respiratory Rate 16 16 Blood Pressure [Ri ght Arm] 114/80 108/72 Pulse Oximetry 97 97 Oxygen Delivery Me thod Room Air Room Air 01/23/23 04:00 01/23/23 07:00 01/23/23 07:00 Temperature 98.1 F 98.3 F Pulse Rate 71 Pulse Rate [Left P ulse Oximeter] 59 L 84 Respiratory Rate 16 14 Blood Pressure [Ri ght Arm] 108/72 113/84 Pulse Oximetry 97 99 Oxygen Delivery Me thod Room Air Room Air 01/23/23 07:00 01/23/23 08:00 Temperature 98.3 F Pulse Rate Pulse Rate [Left P ulse Oximeter] 84 84 Respiratory Rate 14 14 Blood Pressure [Ri ght Arm] 113/84 Pulse Oximetry 99 Oxygen Delivery Me thod Room Air Documenting provider has reviewed patient's vital signs: yes DS: Data Data Completed and Pending Pending studies at discharge: Hepatitis panel Labs on day of discharge: Labs from last 24 hours 01/23/23 01/22/23 01/20/23 07:15 19:24 Unknown Sodium 125 L 121 L* Potassium 3.8 Chloride 95 L Carbon Dioxide 25 Anion Gap 5 L BUN 4 L Creatinine 0.3 L Estimated Creat Clear 51.85 Estimated GFR 118 Glucose 88 Calcium 9.3 Ur Random Osmolality Ur Creatinine per Vol Ur Creatinine 24 Hour U Collection Duration Urine Total Volume Ur Sodium per Vol Ur Sodium mmol/Day Hepatitis A IgM Ab Negative Hep Bs Antigen Negative Hep B Core IgM Ab Negative Hep C Ab Index (ASHLEY) 0.02 Hep C Ab Interp ASHLEY Negative Hepatitis Interpret See Note 01/20/23 22:40 Sodium Potassium Chloride Carbon Dioxide Anion Gap BUN Creatinine Estimated Creat Clear Estimated GFR Glucose Calcium Ur Random Osmolality 69 Ur Creatinine per Vol 9 Ur Creatinine 24 Hour Not Applicable U Collection Duration Random Urine Total Volume Random Ur Sodium per Vol <20 Ur Sodium mmol/Day Not Applicable Hepatitis A IgM Ab Hep Bs Antigen Hep B Core IgM Ab Hep C Ab Index (ASHLEY) Hep C Ab Interp ASHLEY Hepatitis Interpret Imaging Abdominal x-ray: Attestation: I have reviewed the pertinent imaging results. Radiologist's impression: IMPRESSION: 1. No obstruction or free air. 2. Patient does not appear constipated. Chest x-ray: Attestation: I have reviewed the pertinent imaging results. Radiologist's impression: IMPRESSION: No acute cardiopulmonary abnormality. US - abdomen: Attestation: I have reviewed the pertinent imaging results. Radiologist's impression: FINDINGS: Liver: Geographic circumscribed focus of homogeneously increased echotexture in the anterior left hepatic lobe in the expected region of the intersegmental fissure consistent with focal fat. Incidental 1.0 cm with left hepatic lobe anterior subcapsular simple cyst. No suspicious masses. No intrahepatic biliary dilatation. Gallbladder: Multiple round echogenic non shadowing finding is in the lumen of the gallbladder, some of which are associated with nondependent wall, none larger than 4 mm. Differential diagnostic considerations include (adherent) stones and/or gallbladder polyps. If the latter, the morphology is consistent with extremely low risk gallbladder polyps. Based on size, no follow-up is indicated. No gallbladder wall thickening or pericholecystic fluid. Negative sonographic Arredondo`s sign. Common bile duct: 6 mm. Pancreas: Unremarkable. Right kidney: Normal in size. Normal echotexture and cortex. No suspicious masses, stones, or hydronephrosis. Incidental 2.1 cm anechoic unilocular benign right upper pole renal cortical cyst. Vasculature: Proximal abdominal aorta and IVC are unremarkable. IMPRESSION: Common duct caliber is at or just below the upper limit of normal (7 mm for a patient of this age). No intrahepatic biliary duct dilatation. Gallstones and/or polyps discussed above. No sonographic findings of acute cholecystitis. Incidental findings described in the body of the report. Discharge Plan Discharge Disposition: Home, Self-Care Date of Admission: 01/21/23 08:45 Attending Provider on Discharge: Mao Savage Primary Care Provider: Provider,Not a Local Condition: Improved Anticipated Discharge Date/Time: 01/23/23 11:00 Discharge Medications: New sennosides-docusate sodium [Stool Softener-Laxative] 8.6-50 mg Tablet 1 tab PO BID 30 Days Qty: 60 0RF sodium chloride 1,000 mg Tablet,Soluble 1,000 mg PO TIDWM 14 Days Qty: 42 0RF No Action No Known Home Medications Discharge Orders: Discharge Order (Routine); Ordered 01/23/23 Ordered By: Mao Savage Patient Education: Laxative, Stimulant Combination (By mouth), Sodium Chloride (By mouth), Liquids and Hydration for Athletes (DC), Hyponatremia (DC) Additional Instructions: 1. Serum sodium and follow-up with clinician at [facility] in [place], [place], tomorrow Activity Level: Activity as Tolerated Discharge Diet: Regular and Other Diet Detail: 1,800 ml fluid restriction per day Follow Up Appointments: Provider,Not a Local [Primary Care Provider] - 01/24/23 2:30 am (Luanne Mackay/LESA Gómez [phone] [email or web address] [address], [place] [address] ) Forms: [employer] Info Instructions
== END 2023-01-23 11:15 | disposition home or self-care (01) | DRG 641 ==
LOC: ED 01-21 07:49 → MEDSURG 01-21 08:46
PROVIDERS: Family Medicine; Hospitalist; Physician Assistant; Admitting Provider Family Medicine; Emergency Provider Family Medicine; Visit Provider Internal Medicine
DX: E87.1 Hypo-osmolality and hyponatremia (principal); Z85.3 Personal history of malignant neoplasm of breast; R74.01 Elevation of levels of liver transaminase levels; K59.00 Constipation, unspecified; E87.6 Hypokalemia
CPT/HCPCS: 36415; 71046; 74019; 76705; 80048; 80074; 80076; 80143; 80179; 81001; 82077; 83690; 83735; 83935; 84100; 84132; 84295; 84300; 84443; 85025; 85027; 86140; 87086; 99285; 99291; 99292; A9153; A9270; J1650; J2597; J7030; J7070

== ENCOUNTER 2023-07-18 11:38 | Emergency (ER) | payer MEDICARE, OTHER, SELFPAY ==
[2023-07-18 11:51] VITALS: BP 118/86; PULSE 79; RESP 18; TEMP 36.4; O2SAT 99; BMI 17.4
--- NOTE | 2023-07-18 12:19 | ED.GENADULT ---
HPI - General Adult General Chief complaint: Unspecified Complaint, Adult Stated complaint: Dehydration, struggling to digest, cold hands/feet Time Seen by Provider: 07/18/23 11:41 Source: patient, RN notes reviewed and old records reviewed Mode of arrival: ambulatory Limitations: no limitations History of Present Illness HPI narrative: Patient is a 62-year-old woman who presents with a number of concerns. She says for quite some time, perhaps up to a year so she has been having trouble with cold hands and feet and feeling that she is not able to digest her food. Over the past couple of weeks she says she stopped eating completely, she says that she is worried she is so dehydrated that her body cannot digest anything so she is scared to eat. She does note that she has been drinking water and broth without difficulty. She denies any nausea or vomiting. She has not had fevers. She is chronically constipated, says she has not had a bowel movement for 10 days, though also notes she is not really taking in much in the way of food. She notes that she weighs 107 lb, she says a couple of months ago she weighed 123. She does tell me that she had a CT scan a couple of months ago for these symptoms [place] state which she says was normal. She has a history of breast cancer, constipation. Was seen here last fall with severe hyponatremia, sodium was 113. There was a question of alcohol use at that time. She says she does have a primary doctor, but working this up through them would ?take too long. She would like to have a scope to see if there is a blockage. She does not smoke, denies significant alcohol use, there was a question of excessive alcohol use when she was seen here last fall. She is here today with a friend. No prior abdominal surgeries. Related Data Previous Rx's Medication Instructions Recorded sennosides 8.6 mg-docusate sodium 1 tab PO BID 30 days #60 tabs 01/23/23 50 mg tablet (Stool Softener-Laxative) sodium chloride 1,000 mg soluble 1,000 mg PO TIDWM 14 days #42 tabs 01/23/23 tablet potassium chloride 20 mEq 20 meq PO DAILY #10 tabs 07/18/23 tablet,extended release Allergies Allergy/AdvReac Type Severity Reaction Status Date / Time No Known Drug Allergies Allergy Verified 07/18/23 11:58 Review of Systems Status of ROS: Reports: 10 or more systems reviewed and unremarkable except as noted in History and below [facility] Medical History Breast cancer ?C50.919 - Malignant neoplasm of unspecified site of unspecified female breast (ICD-10) Social History What is your current living situation?: I presently have a place to live Problems where you live: no known problems Problems where you live details: none In the past 12 months, utilities in danger of being shut off: no In past 12 months, lack of transportation kept you from medical appts, meetings, work, or getting things needed for daily living: no In the past 12 mos, have been you worried that your food would run out before you had money to buy more?: never true In the past 12 mos, the food you bought just didn't last and you didn't have money to buy more?: never true Highest level of school completed/degree received: some college, no degree Smoking Status: Never smoker Do you use any of these nicotine containing products: None How often do you have a drink containing alcohol: 2-3 times a week How many standard drinks containing alcohol do you have on a typical day: 1 or 2 How often do you have six or more drinks on one occasion: Never AUDIT-C Alcohol total score: 3 Non-prescribed substance use: denies use Caffeine: Yes (cofee) How often does anyone, including family, friends and others, physically hurt you: never How often does anyone, including family, friends and others, insult or talk down to you: sometimes How often does anyone, including family, friends and others, threaten you with harm: never How often does anyone, including family, friends and others, scream or curse at you: sometimes service: No Exam Narrative: Exam Narrative: Vital signs as noted above. In general, an alert, nontoxic woman. She is thin. Head: Normocephalic, atraumatic. Eyes: Pupils are equal reactive. Extraocular movements are full. Conjunctivae are normal, no scleral icterus. ENT: Mucous membranes are somewhat dry. Breath smells ketotic. Neck: Supple without lymphadenopathy. Heart: Regular rate and rhythm. No murmur or rub. Lungs: Clear bilaterally. No increased work of breathing, crackles or wheezes. Abdomen: Soft and nontender. No organomegaly. No obvious masses. Extremities: Well perfused. No edema. No calf tenderness. Pulses intact. Normal CMS in the hands. Neurologic: Patient is alert and oriented to person and place. Speech is fluent. Face is symmetric. Moves all extremities equally. Affect: Flat. Skin: Warm and dry. Well perfused. Const: Vital Signs, click to edit/add: Vital Signs - 24 hr 07/18/23 11:51 07/18/23 14:35 Temperature 97.5 F L Pulse Rate [Right Pulse Oximeter] 79 86 Respiratory Rate 18 18 Blood Pressure [Ri ght Upper Arm] 118/86 134/89 Pulse Oximetry 99 98 Oxygen Delivery Me thod Room Air Room Air Course Course ED Course: Plan at this time is to establish an IV, give some normal saline, check labs. She had a CT scan done in the last few months which she reports is normal, I think there is little value to doing another CT scan. It does sound as if she would benefit from upper endoscopy, but reviewed with her that that is not a test that we were able to do in the emergency department. She does smell ketotic which may be simply from starvation, rule out acidosis other metabolic disturbances. Abdominal exam is benign, doubt obstruction, diverticulitis, cholecystitis, pancreatitis etcetera. Labs overall reassuring. Her sodium today is 130, potassium is 3.1 and I did give her some replacement here, will discharge home on replacement. CBC shows a normal white blood cell count, hemoglobin, platelets. Venous gases normal. Her BUN is 17, creatinine is 0.7, lactate 1.4. LFTs within normal limits, CRP less than 0.5, lipase 89. UA does show 4+ ketones, I think this represents starvation ketosis related to significant decrease in food intake over the past couple weeks. She does have 5-10 white cells, does not have any urinary symptoms, few squames, few bacteria. I think it is reasonable to hold off on treating this for now. Blood alcohol was negative. I have talked to her about all of this. Stressed the importance of getting some food in her system, whatever sounds good to her and even in small amounts would help. Continue to maintain hydration, recommend MiraLax daily to help with chronic constipation. Primary care follow-up for recheck of potassium and to arrange endoscopy, consider GI follow-up if needed. Return for significant abdominal pain, vomiting, fevers or other acute changes. Vital Signs Vital signs: Initial Vital Signs Temperature 97.5 F L 07/18/23 11:51 Temperature Source Temporal Artery Scan 07/18/23 11:51 Pulse Rate 79 07/18/23 11:51 Pulse Rhythm Regular 07/18/23 11:51 Respiratory Rate 18 07/18/23 11:51 Blood Pressure 118/86 07/18/23 11:51 Blood Pressure Mean 96 07/18/23 11:51 Blood Pressure Position Sitting 07/18/23 11:51 Pulse Oximetry 99 07/18/23 11:51 Oxygen Delivery Method Room Air 07/18/23 11:51 Vital Signs Temperature 97.5 F L 07/18/23 11:51 Pulse Rate 79 07/18/23 11:51 Respiratory Rate 18 07/18/23 11:51 Blood Pressure 118/86 07/18/23 11:51 Pulse Oximetry 99 07/18/23 11:51 Oxygen Delivery Method Room Air 07/18/23 11:51 Temperature 97.5 F L 07/18/23 11:51 Pulse Rate 86 07/18/23 14:35 Respiratory Rate 18 07/18/23 14:35 Blood Pressure 134/89 07/18/23 14:35 Pulse Oximetry 98 07/18/23 14:35 Oxygen Delivery Method Room Air 07/18/23 14:35 Medications Administered Medications: Discontinued Medications Generic Name Dose Route Start Last Admin Trade Name Freq PRN Reason Stop Dose Admin Sodium Chloride 1,000 mls @ 1,000 mls/hr 07/18/23 12:15 07/18/23 13:45 0.9 % Sodium Chloride 1000 Ml IV 07/18/23 13:14 Infused .Q1H RODGER Infusion Potassium Bicarbonate 50 meq 07/18/23 13:35 07/18/23 13:45 Potassium Bicarb 25 Meq Effervescent Tab PO 07/18/23 13:36 50 meq ONCE ONE Administration Medical Decision Making Lab Data Labs: Lab Results 07/18/23 07/18/23 Range/Units 12:30 13:10 WBC 5.33 (4.50-11.00) K/uL RBC 5.12 (4.00-5.20) m/uL Hgb 15.1 (12.0-16.0) gm/dL Hct 43.7 (33.0-51.0) % MCV 85 (80-100) fL MCH 30 (26-34) pg MCHC 35 (32-36) gm/dL RDW Coeff of Allen 12.0 (11.5-15.5) % Plt Count 206 (140-440) K/uL Neut % (Auto) 57.5 (42.0-72.0) % Lymph % (Auto) 37.0 (20-44) % Angelina % (Auto) 4.1 (0.0-11.0) % Eos % (Auto) 0.8 (0.0-7.0) % Baso % (Auto) 0.6 (0.0-3.0) % Neut # (Auto) 3.07 (1.7-7.0) K/uL Lymph # (Auto) 1.97 (0.90-2.90) K/uL Angelina # (Auto) 0.20 (0.00-0.90) K/UL Eos # (Auto) 0.04 (0.00-0.50) K/uL Baso # (Auto) 0.03 (0.00-0.30) K/uL Abs Immat Gran (auto) 0.00 (0.00-0.30) K/uL Imm/Tot Granulo (auto) 0.0 % VBG pH 7.397 (7.32-7.43) VBG pCO2 43 (40-50) mmHG VBG pO2 43.5 (25-47) mmHG VBG HCO3 27 (21-28) mmol/L Sodium 130 L (135-149) mmol/L Potassium 3.1 L (3.6-5.1) mmol/L Chloride 93 L (96-114) mmol/L Carbon Dioxide 24 (20-32) mmol/L Anion Gap 13 (7-15) mEq/L BUN 17 (7-30) mg/dL Creatinine 0.7 (0.5-1.5) mg/dL Estimated Creat Clear 43.95 Estimated GFR 97 ml/min Glucose 83 (60-115) mg/dL Lactate 1.4 (0.5-1.9) mmol/L Calcium 10.0 (8.4-10.6) mg/dL Total Bilirubin 1.1 (0.1-1.5) mg/dL Direct Bilirubin 0.2 (0.0-0.5) mg/dL AST 34 (12-35) U/L ALT 26 (4-35) U/L Alkaline Phosphatase 48 (40-150) U/L C-Reactive Protein < 0.5 L (0.5-1.0) mg/dL Total Protein 6.8 (6.0-8.3) g/dL Albumin 4.2 (3.3-5.0) g/dL Lipase 89 (23-300) U/L Urine Color Yellow (Yellow) Urine Appearance Slightly Cloudy A (Clear) Urine pH 6.0 (5.0-8.5) Ur Specific Admire 1.020 (1.000-1.030) Urine Protein 2+ A (Negative) Urine Glucose (UA) Negative (Negative) Urine Ketones 4+ A (Negative) Urine Blood Trace-lysed A (Negative) Urine Nitrite Negative (Negative) Urine Bilirubin 1+ A (Negative) Urine Urobilinogen 1.0 (0.2-1.0) Ur Leukocyte Esterase 1+ A (Negative) Urine RBC 0-2 (0-2) Urine WBC 5-10 A (0-5) Ur Squamous Epith Cells Few (None-Few) Urine Bacteria Few A (None) Ethyl Alcohol < 0.01 L (0.01-0.03) % Discharge Plan Discharge Clinical Impression: Ketosis, Weight loss Patient Disposition: Home, Self-Care Condition: Stable Additional Instructions: Your labs today are generally reassuring, your potassium is slightly low and I would recommend that we replace that for the next few days and recheck with your primary care doctor. With regard to your digestive symptoms, I would recommend the follow-up with primary care so that outpatient endoscopy can be arranged. Prescriptions: New potassium chloride 20 mEq tablet extended release 20 meq PO DAILY Qty: 10 2RF No Action sennosides-docusate sodium [Stool Softener-Laxative] 8.6-50 mg Tablet 1 tab PO BID 30 Days Qty: 60 0RF sodium chloride 1,000 mg Tablet,Soluble 1,000 mg PO TIDWM 14 Days Qty: 42 0RF Follow Up/Referrals: Provider,Not a Local [Primary Care Provider] - Stand Alone Forms: [employer] Info Instructions
[2023-07-18] MEDS: 0.9 % SODIUM CHLORIDE 1000 ml 1,000 ML IV (12:38)
[2023-07-18 12:41] LABS: HCO3 VBG 27 mmol/L (21-28); Lactate Sepsis w/Reflex* 1.4 mmol/L (0.5-1.9); PCO2 VBG 43 mmHG (40-50); PO2 VBG 43.5 mmHG (25-47); pH VBG 7.397 (7.32-7.43)
[2023-07-18 12:43] LABS: Basophils Absolute Auto 0.03 K/uL (0.00-0.30); Basophils Percent Auto 0.6 % (0.0-3.0); Eosinophils Absolute Auto 0.04 K/uL (0.00-0.50); Eosinophils Percent Auto 0.8 % (0.0-7.0); Hematocrit 43.7 % (33.0-51.0); Hemoglobin* 15.1 gm/dL (12.0-16.0); Lymphocytes Absolute Auto 1.97 K/uL (0.90-2.90); Mean Corpuscular HGB Conc 35 gm/dL (32-36); Mean Corpuscular Hemoglobin 30 pg (26-34); Mean Corpuscular Volume 85 fL (80-100); Monocytes Percent Auto 4.1 % (0.0-11.0); Neutrophils Absolute Auto 3.07 K/uL (1.7-7.0); Neutrophils Percent Auto 57.5 % (42.0-72.0); Platelet Count* 206 K/uL (140-440); Red Blood Count 5.12 m/uL (4.00-5.20); White Blood Count* 5.33 K/uL (4.50-11.00)
[2023-07-18 12:50] LABS: Slide Review Reflex No
[2023-07-18 13:04] LABS: Albumin* 4.2 g/dL (3.3-5.0)
[2023-07-18 13:05] LABS: Chloride* 93 mmol/L (96-114); Potassium* 3.1 mmol/L (3.6-5.1); Sodium* 130 mmol/L (135-149)
[2023-07-18 13:07] LABS: Alanine Aminotransferase* 26 U/L (4-35); Alkaline Phosphatase* 48 U/L (40-150); Aspartate Amino Transferase* 34 U/L (12-35); Bilirubin Direct* 0.2 mg/dL (0.0-0.5); Bilirubin Total* 1.1 mg/dL (0.1-1.5); Creatinine* 0.7 mg/dL (0.5-1.5); Est. Creatinine Clearance* 43.95; Estimated Glomerular Filt Rate 97 ml/min; Lipase* 89 U/L (23-300); Total Protein* 6.8 g/dL (6.0-8.3)
[2023-07-18 13:09] LABS: Anion Gap 13 mEq/L (7-15); Blood Urea Nitrogen* 17 mg/dL (7-30); Carbon Dioxide* 24 mmol/L (20-32); Ethanol* < 0.01 % (0.01-0.03); Glucose* 83 mg/dL (60-115)
[2023-07-18 13:17] LABS: C Reactive Protein* < 0.5 mg/dL (0.5-1.0)
[2023-07-18] MEDS: POTASSIUM BICARB 25 MEQ EFFERVESCENT TAB 50 MEQ PO (13:45)
[2023-07-18 13:46] LABS: Appearance Urine Slightly Cloudy (Clear); Bilirubin Urine 1+ (Negative); Blood Urine Trace-lysed (Negative); Color Urine Yellow (Yellow); Glucose Urine Negative (Negative); Ketones Urine 4+ (Negative); Leukocyte Esterase Urine 1+ (Negative); Nitrite Urine Negative (Negative); Protein Urine 2+ (Negative)
[2023-07-18 14:04] LABS: RBC Urine 0-2 (0-2)
[2023-07-18 14:05] LABS: Bacteria Urine Few; Squamous Epithelial Cell Urine Few (None-Few)
[2023-07-18 14:35] VITALS: BP 134/89; PULSE 86; RESP 18; O2SAT 98
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
== END 2023-07-18 14:45 | disposition home or self-care (01) ==
PROVIDERS: Emergency Provider Emergency Medicine
DX: E88.89 Other specified metabolic disorders (principal); R63.4 Abnormal weight loss
CPT/HCPCS: 36415; 80048; 80076; 81001; 82077; 82803; 83605; 83690; 85025; 86140; 87077; 87086; 87185; 96360; 99284; A9270; J7030